=== PATIENT | female | born 1995 | race Caucasian/White ===

== ENCOUNTER 2017-05-30 19:56 | Observation (INO) ==
--- NOTE | 2017-05-30 20:16 | Emergency Department Note ---
Disposition Clinical Impression: Generalized seizure Qualifiers: Weeks of gestation: 13 weeks Qualified Code(s): Z3A.13 - 13 weeks gestation of Disposition: Admitted As Inpatient Condition: Good Referrals: NONE,PCP [Primary Care Provider] - Forms: ED Satisfaction Letter Time of Disposition: 20:53 Seizure HPI - General Chief Complaint: ED Seizure Stated Complaint: Seizure activity Time Seen by Provider: 05/30/17 19:57 Source: family Mode of arrival: private vehicle Limitations: no limitations Nursing Notes Reviewed: Yes Vital Signs Reviewed: Yes - History of Present Illness HPI Narrative: 21-year-old female who is presently 13 weeks who was seen earlier today for seizures she had stopped her seizure medications because she was we started her back on some Keppra and she was given a follow-up apparently went home and had additional seizure. Pt Subjective Complaint: seizure Onset (ago): Just LAST WAXER Description of Episode: tonic-clonic movement Witnessed: yes - by bystander Associated trauma secondary to event: No Possible Precipitating Event: other (Patient has a history of seizures but stopped her medications when she got .) Associated symptoms: Reports: denies other symptoms Treatments prior to arrival: other (Keppra) - Related Data Home Medications Medication Instructions Recorded Confirmed Intuniv 1 mg PO BID 04/01/15 04/01/15 Bamberg 300 mg PO TID 04/01/15 04/01/15 Seroquel 50 mg PO HS PRN 04/01/15 04/01/15 Topamax 25 mg PO BID 04/01/15 04/01/15 Previous Rx's Medication Instructions Recorded Nitrofurantoin (BID) [Macrobid] 100 mg PO BID #14 capsule 01/07/16 Folic Acid 2 mg PO DAILY #60 tablet 05/30/17 LevETIRAcetam [Keppra] 500 mg PO BID #60 tablet 05/30/17 Allergies Allergy/AdvReac Type Severity Reaction Status Date / Time Cephalosporins Allergy Anaphylaxis Verified 04/01/15 14:00 latex Allergy Hives Verified 05/30/17 11:40 Penicillins Allergy Hives Verified 04/01/15 14:07 All systems ED: reviewed and negative except as stated. Constitutional: Denies: fever, chills, weakness, weight change Eyes: Denies: eye pain, eye discharge, vision change ENT ED: Denies: ear pain, throat pain, dental pain, hearing loss, epistaxis, congestion, dysphagia Cardiovascular: Denies: chest pain, palpitations, dyspnea on exertion, edema, syncope Respiratory: Denies: cough, dyspnea, wheezes, hemoptysis, stridor Gastrointestinal: Denies: abdominal pain, nausea, vomiting, diarrhea, constipation, hematemesis, melena, hematochezia Genitourinary: Denies: dysuria, frequency, hematuria, discharge Musculoskeletal: Denies: back pain, neck pain, arthralgia, myalgia Integumentary: Denies: rash, abrasion, lesions Neurological: Reports: other (Seizure). Denies: headache, weakness, numbness, paresthesias, confusion, abnormal gait, vertigo Psychiatric: Denies: anxiety, depression, suicidal thoughts, homicidal thoughts , auditory hallucinations, visual hallucinations Endocrine: Denies: fatigue Hematological/Lymphatic: Denies: easy bleeding, easy bruising Allergic/Immunologic: Denies: facial swelling, urticaria Past Medical History - Past Medical History Medical history: Reports: seizures, other Surgical history: Reports: other Psychiatric history: Reports: anxiety, bipolar, schizophrenia RESOLUTE PROFESSIONAL history: Reports: no RESOLUTE PROFESSIONAL history - Social History Smoking Status: Never smoker Smokeless Tobacco Status: No Alcohol use: Reports: none Drug use: Reports: none Physical Exam - General Limitations: no limitations General appearance: in no apparent distress - Head Head exam: atraumatic, normocephalic, normal inspection - Eye Eye exam: Present: normal appearance, PERRL, EOMI - ENT ENT exam: normal exam, normal oropharynx, mucous membranes moist - Neck Neck exam: Present: normal inspection, full ROM, trachea midline - Chest Chest inspection: Present: normal inspection, symmetric chest wall rise - Respiratory Respiratory exam: Present: normal lung sounds bilaterally - Cardiovascular Cardiovascular exam: Present: regular rate, normal rhythm, normal heart sounds - Abdominal Exam Abdominal exam: Present: soft, Non-Tender. Absent: tenderness, distention, guarding, rebound, rigidity - Extremities Exam Extremities exam: Present: normal inspection, full ROM. Absent: tenderness, pedal edema - Expanded Lower Extremity Exam Neurovascular/Tendon exam: Absent: motor deficit, sensory deficit, tendon deficit Gait: observed and normal - Back Exam Back exam: Present: normal inspection, full ROM. Absent: tenderness - Neurological Exam Neurological exam: Present: alert, oriented X3, other (Patient initially is not able to talk.) - Psychiatric Psychiatric exam: Present: agitated - Skin Skin exam: Present: warm, dry, intact, normal color Course - Reevaluation(s) Reevaluation #1: 21-year-old who is about 13 weeks who was seen earlier today and for seizures was started on Keppra 1 home and had additional seizure. Patient will be given IV load of Keppra will be admitted here for further evaluation and treatment. Time: 20:53 - Consultations Consultation #1: Discussed with Dr. Joe, 500 mg of Keppra IV. Time: 20:20 Consultation #2: Discussed with Lima Calvillo, who states that from a point review there is nothing to do. Time: 20:36 Consultation #3: Discussed with Dr. Mathur, he will discuss the case with OB and neurology and give us a call back. Time: 20:37 Additional Consultation(s): 5pm discussed with discussed the case with neurology were given an additional 500 Keppra and the patient will be admitted for further evaluation. Vital Signs Temperature 99.2 F 05/30/17 19:58 Pulse Rate 98 05/30/17 19:58 Respiratory Rate 20 05/30/17 19:58 Blood Pressure 142/81 05/30/17 19:58 O2 Sat by Pulse Oximetry 98 05/30/17 19:58 Temperature 99.2 F 05/30/17 19:58 Pulse Rate 104 05/30/17 20:47 Respiratory Rate 18 05/30/17 20:47 Blood Pressure 124/74 05/30/17 20:47 O2 Sat by Pulse Oximetry 97 05/30/17 20:47 Oxygen Delivery Oxygen Delivery Room Air
[2017-05-30] MEDS ORDERED: Naloxone 0.4 MG/ML INJ IVP PRN (21:07)
[2017-05-30] MEDS ORDERED: *HR* LORazepam 2 MG/ML VIAL IVP PRN (21:22)
--- NOTE | 2017-05-30 21:22 | Internal Med History&Physical ---
<Rafael Calero - Last Filed: 05/30/17 21:16> Date of Encounter: 05/30/17 Time of Encounter: 21:16 Assessment and Plan (1) Generalized seizure Current visit: Yes Status: Acute Recently had an EMG which shows left frontal temporal epileptiform discharges that are nonspecific. There is strong suspicion for pseudoseizure-like activity secondary to psychosis long-standing history of anxiety and bipolar schizophrenia. Consult neurology-suggestion was given additional 500 mg IV Keppra. Neurology to see tomorrow Consult psych-dayshift team to call; appears to be a psychological component, usually pseudoseizure activities versus seizures Keppra 500 mg by mouth twice a day starting tomorrow Ativan 2 mg IV push every 4 hours when necessary for seizure activity Continuous telemetry Seizure precautions, padded rails BMP CBC in the morning (2) UTI (urinary tract infection) Current visit: Yes Status: Acute UA reveals large leuk esterase and nitrates. Many bacteria present. Due to will start the patient on Macrobid 100 mg by mouth every 12 hours. Urine sent for culture Qualifiers: Urinary tract infection type: acute cystitis Qualified Code(s): N30.00 - Acute cystitis without hematuria (3) Current visit: Yes Status: Acute 13 weeks gestation. Reporting no problems with thus far. New seizure like activities, consulting OBGYN to assist with management. Qualifiers: Weeks of gestation: 13 weeks Qualified Code(s): Z3A.13 - 13 weeks gestation of (4) DVT prophylaxis Current visit: Yes Status: Acute EPCD's calf pumps Internal Medicine - H&P: HPI Chief complaint: Pseudoseizures and UTI Admitted From: Home Plans for Post Hospital Care: Home History of present illness: Ms. Duff is a 21 year old female with a PMH of anxiety, bipolar schizophrenia. Presents today with seizure-like activity which began this morning. She is 13 weeks gestation was seen in the ED earlier today for seizure activity. She reports recently stopping her seizure medications due to . Was on lithium prior but is not taking lithium for the last 2-3 months she was given Keppra 500 mg while in the ED and sent home with oral Keppra. She returns this evening with pseudoseizure-like activity. Denies any fever, chills, headaches, vision changes or auras. She does admit to increasing auditory hallucinations over the last couple of months. She is unsure if or what seizure medications she takes at home. Past Med Surg Social Fam HX - Past Medical History Medical history: seizures, other Psychiatric history: anxiety, bipolar, schizophrenia - Past Surgical History Surgical History: other - Social History Smoking Status: Never smoker Smokeless Tobacco Status: No Alcohol use: none Drug use: none - Additional Family History Additional family history: Noncontributory Internal Medicine - H&P: Meds Folic Acid 2 mg PO DAILY #60 tablet 05/30/17 [Rx] LevETIRAcetam [Keppra] 500 mg PO BID #60 tablet 05/30/17 [Rx] Pnv95/Ferrous Fumarate/FA [ Vitamin Tablet] 1 each PO DAILY 05/30/17 [ History] 3 Allergy/AdvReac Type Severity Reaction Status Date / Time Cephalosporins Allergy Anaphylaxis Verified 04/01/15 14:00 latex Allergy Hives Verified 05/30/17 11:40 Penicillins Allergy Hives Verified 04/01/15 14:07 All Systems PM: A 10-system review of systems was performed and is negative for pertinent findings except as documented above in the HPI. - Constitutional Constitutional: no chills, no fever(s), no night sweats - EENT Eyes: no change in vision, no discharge, no pain, no photophobia - Cardiovascular Cardiovascular ROS IM: no chest pain, no diaphoresis, no dyspnea, no lightheadedness, no palpitations, no syncope - Respiratory Respiratory: no cough, no dyspnea, no wheezing, no excessive phlegm production - Gastrointestinal Gastrointestinal: no abdominal pain, no diarrhea, no hematemesis, no hematochezia, no melena, no nausea, no vomiting - Genitourinary Genitourinary: no change in urinary stream, no dysuria, no flank pain, no hematuria - Musculoskeletal Musculoskeletal ROS IM: no numbness, no tingling - Integumentary Integumentary IM: no rash, no unusual bruising - Neurological Neurological ROS: as per HPI, abnormal movements (seizure like activity, violent flailing of torso and upper and lower extremities) - Psychiatric Psychiatric: as per HPI, anxiety, auditory hallucinations, difficulty concentrating, no homicidal ideation, no suicidal ideation, no visual hallucinations - Constitutional Vitals: Temp Pulse Resp BP Pulse Ox 99.2 F 104 18 124/74 97 11/01/17 19:58 05/30/17 20:47 05/30/17 20:47 05/30/17 20:47 05/30/17 20:47 General appearance: Present: cooperative, mild distress, A&O X 3 - Head Head exam: Present: atraumatic, normocephalic - Eye Eye exam: Present: PERRL, conjuntiva pink, sclera anicteric Pupils: Present: PERRL - Neck Neck exam general surgery: Present: supple, trachea midline. Absent: lymphadenopathy - Respiratory Respiratory exam: Present: CTAB. Absent: accessory muscle use, rales, rhonchi, wheezes - Cardiovascular Cardiovascular exam: Present: RRR, +S1, +S2. Absent: diastolic murmur, gallop, rubs, systolic murmur - GI/Abdominal GI/Abdominal exam: Present: normal bowel sounds, soft, no peritoneal signs. Absent: distended, tenderness - Extremities Exam Extremities exam: Present: warm, radial pulses palpable and symmetrical. Absent : calf tenderness, cyanotic, pedal edema - Neurological Exam Neurological exam: Present: oriented X3, no focal deficits. Absent: pronater drift, facial droop, speech deficit Additional comments: bedside the patient appeared to have pseudoseizure-like activities with violent flailing of torso, upper and lower extremity is. However, she was not postictal after the event and was immediately able to resume my examination. - Expanded Neurological Exam Neurological exam expanded: Present: protecting the airway Patient oriented to: Present: person, place, time Speech: Present: fluid speech Coma Scale Eye Opening: Spontaneous Coma Scale Motor Response: Obeys Commands Coma Scale Verbal Response: Oriented Coma Scale Total: 15 - Psychiatric Psychiatric exam: Present: anxious. Absent: homicidal ideation, suicidal ideation - Skin Skin exam: Present: dry, intact Internal Med - H&P Results - EKG Data -: EKG Interpreted by Myself - EKG Data EKG comments: 05/30/17 21:47 Sinus rhythm with sinus arrhythmia. <Boone Mathur - Last Filed: 05/30/17 23:21> Date of Encounter: 05/30/17 Time of Encounter: 23:07 - Constitutional Vitals: Temp Pulse Resp BP Pulse Ox 99.6 F 89 14 111/76 97 05/30/17 21:55 05/30/17 21:55 05/30/17 21:55 05/30/17 21:55 05/30/17 21:55 General appearance: Present: cooperative, A&O X 3, pleasant, no acute distress - Head Head exam: Present: atraumatic - Eye Eye exam: Present: EOMI, PERRL. Absent: scleral icterus Pupils: Present: normal accommodation - ENT ENT exam: Present: mucous membranes moist, normal exam - Neck Neck exam general surgery: Present: full ROM, supple. Absent: tenderness - Respiratory Respiratory exam: Present: CTAB. Absent: rales, rhonchi, wheezes - Cardiovascular Cardiovascular exam: Present: RRR, +S1, +S2. Absent: diastolic murmur, systolic murmur - GI/Abdominal GI/Abdominal exam: Present: normal bowel sounds, soft. Absent: tenderness - Extremities Exam Extremities exam: Present: normal capillary refill, warm, radial pulses palpable and symmetrical. Absent: calf tenderness, pedal edema - Back Exam Back exam: Present: normal inspection. Absent: CVA tenderness (L), CVA tenderness (R) - Neurological Exam Neurological exam: Present: alert, oriented X3, no focal deficits, strengths equal and symetr throughout - Psychiatric Psychiatric exam: Present: anxious - Skin Skin exam: Present: dry, warm Internal Med - H&P Results - EKG Data -: EKG Interpreted by Myself - EKG Data EKG comments: 05/30/17 23:12 Sinus arrhythmia - Attending Attestation I discussed the patient [place], PMH, ROS, lab data, and exam findings with Rafael Calero CNP. I then saw and examined patient independently as well. In addition, I spoke with Dr. Joe (neurology) and Lima Calvillo (public relations officer -- OB ) prior to accepting admission from ER. Patient has known seizure disorder and has been off seizure meds for about 2 years now. She also stopped her psychiatric meds abruptly once she found out she was . She states she has been seizure free for 2 years until recently. She reportedly had a few seizures today. There is also some concern these may be pseudoseizures. Nonetheless, she is admitted for further work-up and treatment. I spoke with Dr. Joe earlier who recommended she receive 1000mg Keppra IV tonight in ER with resumption of 500 mg BID dosing starting tomorrow. She also has UTI symptoms. I spoke with Lima after she saw patient and she ordered ultrasound of uterus given that she did not appreciate heart tones at this time. We will continue Keppra, Macrobid, and IVF. OB and neurology are consulted. We will also consult psychiatry as noted by Rafael. Other than my comments above and noted exam findings, I agree with Rafael's assessment an plan.
--- NOTE | 2017-05-30 22:54 | OB/GYN Consult Note ---
Date of Encounter: 05/31/17 Time of Encounter: 22:54 Assessment and Plan (1) Current Visit: Yes Status: Acute at 13 weeks gestation. Unable to achieve tones at the bedside. Proceed to formal OB US. -OB pelvic ultrasound shows FHR 152, good movement, and gestation at approximately 14 weeks 2 days. -Will supplement with 2grams of folic acid due to recent administration of Keppra. Qualifiers: Weeks of gestation: 13 weeks Qualified Code(s): Z3A.13 - 13 weeks gestation of (2) UTI (urinary tract infection) Current Visit: Yes Status: Acute Patient with documented history of PCN and cephalosporin allergies. -Will start Macrobid BID PO. -monitor clinically. Qualifiers: Urinary tract infection type: acute cystitis Hematuria presence: without hematuria Qualified Code(s): N30.00 - Acute cystitis without hematuria (3) Generalized seizure Current Visit: Yes Status: Acute Management per primary team and/or neurology. History of Present Illness Consult date: 05/30/17 Requesting physician: Boone Mathur Reason for consult: other (Patient with 13 week gestation) Chief complaint: Seizures History of present illness: Ms. 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 She presented to the emergency department this evening actively seizing. Her seizures are now under control with Ativan and Keppra. Per patient, she recently discontinued all of her psychiatric and antiepileptic medications when she found out she was approximately 3 months ago. Patient was taking lithium, latuda, Intuniv, and an unknown seizure medication at that time. Patient sees Dr. Cooper in neurology here at [facility] as well as Dr. Holly at [facility] [employer]. Patient is resting comfortably in her bed currently. She denies any vaginal bleeding or discharge. She states her has been uncomplicated up until this point. Of note, patient was found to have a UTI in the ED. She was admitted to medicine service for management of her epileptic activity. Past Med Surg Social Fam HX - Past Medical History Attestation: Yes The following information was validated with the patient. Source: patient Medical history: seizures (S/P stroke secondary to AVM at 11), other Psychiatric history: anxiety, bipolar, schizophrenia - Past Surgical History Surgical History: other - Social History Smoking Status: Never smoker Smokeless Tobacco Status: No Alcohol use: none Drug use: none - Family History Mother Hx Family Cardiac Disorders: Yes Hx Family Neurologic Disorders: Yes (SEIZURES, CVA) Medications and Allergies Folic Acid 2 mg PO DAILY #60 tablet 05/30/17 [Rx] LevETIRAcetam [Keppra] 500 mg PO BID #60 tablet 05/30/17 [Rx] Pnv95/Ferrous Fumarate/FA [ Vitamin Tablet] 1 each PO DAILY 05/30/17 [ History] 3 Allergy/AdvReac Type Severity Reaction Status Date / Time Cephalosporins Allergy Anaphylaxis Verified 04/01/15 14:00 latex Allergy Hives Verified 05/30/17 11:40 Penicillins Allergy Hives Verified 04/01/15 14:07 Review of Systems All Systems: reviewed and no additional remarkable complaints except as stated Constitutional: no anorexia, no chills, no fever(s), no headache(s) Nose, mouth and throat: no headache(s) Cardiovascular: no chest pain, no dyspnea, no lightheadedness, no palpitations Respiratory: no cough, no dyspnea, no dyspnea on exertion Gastrointestinal: no abdominal pain, no constipation, no diarrhea Genitourinary Female: no dysuria, no flank pain, no urinary urgency, no vaginal discharge, no vaginal odor Neurological: no abnormal speech, no focal weakness Exam - Vital Signs Vital signs: Initial Vital Signs Temp Pulse Resp BP Pulse Ox 99.2 F 98 20 142/81 98 05/30/17 19:58 05/30/17 19:58 05/30/17 19:58 05/30/17 19:58 05/30/17 19:58 - Constitutional Constitutional: well developed, well nourished, no acute distress - HEENT HEENT: Mucus Membranes Moist - Lungs Respiratory exam: CTAB - Cardiovascular Cardiovascular exam: RRR, +S1, +S2 - Abdomen Abdomen: Present: bowel sounds normal, non tender - Extremities Extremities exam: normal inspection, radial pulses palpable and symmetrical - Uterus Uterus exam: Present: normal size (Fundus below umbilicus) Results All other labs normal. Consult Discharge Plan - Plan Referrals: NONE,PCP [Primary Care Provider] -
[2017-05-30] MEDS: Nitrofurantoin (BID) 100 MG CAPSULE PO SCH (23:27)
[2017-05-31 04:50] LABS: Basophils % 0.5 %; Eosinophils # 0.1 K/mcL (0.0-0.6); Eosinophils % 0.9 %; Hematocrit 36.7 % (35.3-44.9); Hemoglobin 12.6 g/dL (11.5-15.4); Immature Granulocytes % 0.4 % (0-4); Lymphocytes # 2.4 K/mcL (0.6-4.6); Lymphocytes % 30.1 %; Mean Corpuscular HGB Conc 34.3 g/dL (31.6-35.5); Mean Corpuscular Hemoglobin 29.9 pg (28.0-33.3); Mean Platelet Volume 11.1 fL (9.4-12.4); Monocytes # 0.9 K/mcL (0.0-1.3); Monocytes % 11.6 %; Neutrophils # 4.5 K/mcL (1.6-8.9); Platelet Count 204 K/mcL (140-400); Red Blood Count 4.22 M/mcL (3.82-4.97); Red Cell Distribution Width 14.1 % (11.5-14.5); Segmented Neutrophils % 56.5 %
[2017-05-31 05:34] LABS: BUN/Creatinine Ratio 10 (6-26); Blood Urea Nitrogen 6 mg/dL (7-20); Calcium 8.9 mg/dL (8.6-10.8); Carbon Dioxide 20 mEq/L (19-29); Chloride 109 mEq/L (98-109); Glucose 77 mg/dL (70-99); Osmolality,Calculated 282 (280-300); Potassium 3.5 mEq/L (3.5-4.5); Sodium 138 mEq/L (136-145); eGFR For African Americans > 60 (> 60); eGFR For Non-African Americans > 60 (> 60)
[2017-05-31] MEDS ORDERED: Nitrofurantoin (BID) 100 MG CAPSULE PO SCH (08:00)
[2017-05-31] MEDS ORDERED: Acetaminophen 325 MG TABLET PO ONE (08:33)
[2017-05-31] MEDS: Nitrofurantoin (BID) 100 MG CAPSULE PO SCH (08:50)
[2017-05-31] MEDS ORDERED: Prenatal Vit/FA 1 EACH TABLET PO SCH (09:00)
[2017-05-31] MEDS ORDERED: Folic Acid 1 MG TABLET PO SCH (09:00)
[2017-05-31] MEDS ORDERED: levETIRAcetam 250 MG TABLET PO SCH (09:00)
--- NOTE | 2017-05-31 09:05 | Neurology - Consult Note ---
Date of Encounter: 05/31/17 Time of Encounter: 08:05 Assessment and Plan (1) Generalized seizure Current Visit: Yes Status: Acute This patient who has an history of seizures for quite some time along with history of intravenous malformation status post embolization about 10 years ago recently having increasing seizures apparently he had a few seizures yesterday she has been off all seizure medications because of the she has been 13 weeks , He has been started on Keppra yesterday in the emergency room but apparently had a few seizures after that she is on IV suggested that we should continue on Keppra 500 mg by mouth twice a day along with folic acid 2 mg daily. Though she had an history of seizures but at the same time there is a concern that she may have some pseudoseizures mixed in as well due to the fact that she has not history of bipolar disorder as well as other behavioral disorders have recently been under stress particularly with the perhaps may be contributing to these spells Regardless she certainly need to be treated with seizure medication as she also has valid reason for these seizures Suggest that he should continue on the Keppra keep her on seizure precautions OB services has already been consulted and following the patient (2) History of arteriovenous malformation (AVM) Current Visit: Yes Status: Acute Patient has not history of AV malformation status post embolization and also has a gamma knife in 2007 last imaging studies in July 2015 did not show any evidence of any new problem and her embolization was a stable at this time she does not have any clinical signs and symptoms for bleeding or any other neurological abnormalities on examination that would require any repeat imaging studies. (3) Current Visit: Yes Status: Acute Qualifiers: Weeks of gestation: 13 weeks Qualified Code(s): Z3A.13 - 13 weeks gestation of (4) History of bipolar disorder Current Visit: Yes Status: Acute She has a history of bipolar and behavior disorder had been seen by [facility] in the past and was on a quite a few medication but she has been off for the past several months I would recommend that she should be evaluated by psychiatry to make sure that she is maintained on some medication especially during the so she does not have any relapses History of Present Illness HPI: Ms. Duff is a 21 year old female known to me from previous office visit for seizures and history of AVM, she also has history of anxiety, bipolar schizophrenia as well as seizures, also had history of AVM s/p embolization in 2006 and gamma knife in 2007, admitted with with seizure-like activity which began this morning. She is 13 weeks gestation was seen in the ED earlier today for seizure activity. She reports recently stopping her seizure medications due to . she Was on lithium as well as ablify prior but is not taking lithium for the last 2-3 months she was given Keppra 500 mg while in the ED and sent home with oral Keppra. She returns this evening with pseudoseizure-like activity. Denies any fever, chills, headaches, vision changes or auras. She does admit to increasing auditory hallucinations over the last couple of months. She is unsure if or what seizure medications she takes at home. Patient last seen in February at that time she was only taking Neurontin but she stopped taking it because making her drowsy so she was given a prescription for Lyrica but apparently she did not start taking it. Before Neurontin she was on Topamax but he stopped due to nausea overall she was a stable but having few seizures, off and on before she got , she was not on any anticonvulsive agents in the last 2-3 months she also stopped taking her other psychiatric medication as well Patient has an history of AVM for which she had an embolization, her last imaging studies was in August [address] she had a CT angiogram which shows evidence of embolization of AVM in the region of the posterior body and splenium of the corpus callosum. No enlarged feeding vessel or evidence of aneurysm. No acute intracranial abnormality noted at that time. Past Med Surg Social Fam HX - Past Medical History Medical history: seizures (S/P stroke secondary to AVM at 11), other Psychiatric history: anxiety, bipolar, schizophrenia - Past Surgical History Surgical History: other - Social History Smoking Status: Never smoker Smokeless Tobacco Status: No Alcohol use: none Drug use: none - Family History Mother Hx Family Cardiac Disorders: Yes Hx Family Neurologic Disorders: Yes (SEIZURES, CVA) Medications and Allergies Folic Acid 2 mg PO DAILY #60 tablet 05/30/17 [Rx] LevETIRAcetam [Keppra] 500 mg PO BID #60 tablet 05/30/17 [Rx] Pnv95/Ferrous Fumarate/FA [ Vitamin Tablet] 1 each PO DAILY 05/30/17 [ History] 3 Allergy/AdvReac Type Severity Reaction Status Date / Time Cephalosporins Allergy Anaphylaxis Verified 04/01/15 14:00 latex Allergy Hives Verified 05/30/17 11:40 Penicillins Allergy Hives Verified 04/01/15 14:07 All Systems: A 10-system review of systems was performed and is negative for pertinent findings except as documented above in the HPI. Physical Examination - Vital Signs Vital Signs: Initial Vital Signs Temp Pulse Resp BP Pulse Ox 99.2 F 98 20 142/81 98 05/30/17 19:58 05/30/17 19:58 05/30/17 19:58 05/30/17 19:58 05/30/17 19:58 - Constitutional General appearance: comfortable - Neurologic Sensorimotor examination: intact Detailed motor examination: grossly full strength in all extremities Detailed sensory examination: intact Reflex and gait examination: intact Reflexes: Biceps: 1+, Triceps: 1+, Brachioradialis: 1+, Patella: 1+, Achilles: 1 + Mental Status Examination: awake, oriented to person, oriented to place, oriented to time, follows commands appropriately, answers questions appropriately Cranial nerve examination: PERRL, EOMI, visual zelaya intact, no facial asymmetry is present, no dysarthria Cerebellar examination: no dysmetria Results - Laboratory Findings CBC and BMP: 05/31/17 03:37 05/31/17 03:37 Abnormal lab findings: Abnormal lab results BUN 6 mg/dL (7-20) L 05/31/17 03:37 [place] < 0.1 mEq/L (0.6-1.2) L 05/30/17 21:53 Consult Discharge Plan - Plan Referrals: NONE,PCP [Primary Care Provider] -
--- NOTE | 2017-05-31 13:43 | Discharge Summary ---
Date of Encounter: 05/31/17 Time of Encounter: 13:41 - Discharge Diagnosis (1) Generalized seizure Priority: Primary Status: Acute Comments: Moira Duff is a 21-year-old female with past medical history seizure disorder and AVM who presented to [facility] on 2016 after having a seizure. She was admitted for neurologic and psychiatric evaluation. She was discharged home on 05/31/2017 in stable condition with outpatient follow-up 1. Seizure disorder: per hx. Not on AEDs at home. Presented with reported tonic clonic seizure 2 months prior and on day of admission. Loaded with Keppra in the ED. Evaluated by cardiology who recommended continuing Keppra 500 mg BID. No seizure activity while inpatient. Continue Keppra with folic acid at discharge. Will need to follow-up with neurology outpatient. 2. Hx AVM: Status post embolization 10 years ago. Allergy noted Gamma knife in 2007 with most recent imaging 07/2015 without evidence of new finding and embolization stable at that time. No clinical signs or symptoms of bleeding or other logic abnormalities. No need to repeat imaging studies at this time per neurology. 3. Bipolar: Per history. Has been off medications for the past several months secondary to and insurance reasons. Patient was evaluated by Dr. Paul who did not feel patient warranted treatment at this time. Per Dr. Paul, IF the patient needed to be treated, the safest medications with are fluoxetine and Haldol. Hold on prescribing antipsychotics at this time. Will defer to outpatient psychiatrist. 4. Abnormal UA: UA with leuk esterase and nitrites. Macrobid started on admission. Urine culture negative, no growth. ATB stopped. 5. : Evaluated by OB who noted at 13 weeks gestation. OB pelvic ultrasound shows FHR 152, good movement, and gestation at approximately 14 weeks. Can follow up with OB as previously planned (2) Priority: Primary Status: Acute Qualifiers: Qualified Code(s): Z3A.13 - 13 weeks gestation of (3) History of bipolar disorder Priority: Primary Status: Acute (4) History of arteriovenous malformation (AVM) Priority: Primary Status: Acute - Discharge Medications Prescriptions: Folic Acid 2 mg PO DAILY #60 tablet LevETIRAcetam [Keppra] 500 mg PO BID #60 tablet Home Medications: Pnv95/Ferrous Fumarate/FA [ Vitamin Tablet] 1 each PO DAILY 05/30/17 [ History] Folic Acid 2 mg PO DAILY #60 tablet 05/31/17 [Rx] LevETIRAcetam [Keppra] 500 mg PO BID #60 tablet 05/31/17 [Rx] Allergies/Adverse Reactions: 3 Allergy/AdvReac Type Severity Reaction Status Date / Time Cephalosporins Allergy Anaphylaxis Verified 04/01/15 14:00 latex Allergy Hives Verified 05/30/17 11:40 Penicillins Allergy Hives Verified 04/01/15 14:07 Procedures/tests Complete & Pending: Procedures Performed prior 72 hours Category Date Time Status OB follow up [US] Stat Exams 05/30/17 22:46 Draft Date of admission: 05/30/17 21:01 Primary care physician: PCP NONE Consults: 05/30/17 21:09 Consult to Neurology [CONS] Routine Consulting Provider: [facility] Reason for Consult: pseudoseizures, h/o schizophrenia anxiety and bipolar. Recently stopped psych meds due to . Time Notified: 21:12 Call Completed: Yes Consult to [employer] [CONS] Routine Consulting Provider: [employer] [facility] Reason for Consult: pseudoseizures, h/o schizophrenia anxiety and bipolar. Recently stopped psych meds due to Time Notified: 21:12 Call Completed: Yes Consult to Psychiatry [CONS] Routine Consulting Provider: Psychiatry [place] Reason for Consult: pseudoseizures, h/o schizophrenia anxiety and bipolar. Recently stopped psych meds due to Call Completed: No Discharging clinician: Latisha Aguirre Anticipated date of discharge: 05/31/17 - Patient Status Disposition: Home, Self-Care Condition: Good Functional capacity at discharge: independent ambulation Overall status at discharge: patient is back to baseline - Discharge Instructions Instructions: Epilepsy (DC), Levetiracetam (By mouth), (DC) Follow Up With: Aj Holly MD [Partnered Physician] - 06/18/17 10:45 am Jeremy Joe MD [Partnered Physician] - 06/11/17 11:00 am Additional Instructions: Follow Up Appointment 1. Please call your primary care's office within 24 hours or next business day to schedule a follow up appointment 2. Please follow up with psychiatrist as previously planned 3. Continue taking antiseizure medications as prescribed and follow-up with neurology - Diet and Activity Activity: increase activity as tolerated Diet: advance to your usual diet Interval History: Seen and examined at bedside. Patient is new to me. Information obtained from chart review and patient report. Patient has a headache otherwise she has no complaints. No further seizure activity recurrence. She has not been taking seizure medication at home. She tells me she was seizure free for years therefore seizure medication was stopped. Hospital course: Ms. Duff is a 21 year old female - Time Spent with Patient Total time spent providing and/or coordinating discharge services: Greater than 30 minutes (44 minutes spent on discharge) - Constitutional Vitals: Temp Pulse Resp BP Pulse Ox 97.7 F 86 17 114/77 94 05/31/17 10:43 05/31/17 10:43 05/31/17 10:43 05/31/17 10:43 05/31/17 10:43 General appearance: Present: cooperative, A&O X 3, pleasant, no acute distress - Head Head exam: Present: atraumatic, normocephalic - Eye Eye exam: Present: PERRL, conjuntiva pink, sclera anicteric Pupils: Present: PERRL - Neck Neck exam general surgery: Present: supple, trachea midline. Absent: lymphadenopathy - Respiratory Respiratory exam: Present: CTAB. Absent: accessory muscle use, rales, rhonchi, wheezes - Cardiovascular Cardiovascular exam: Present: RRR, +S1, +S2. Absent: diastolic murmur, gallop, rubs, systolic murmur - GI/Abdominal GI/Abdominal exam: Present: normal bowel sounds, soft, no peritoneal signs. Absent: distended, tenderness - Extremities Exam Extremities exam: Present: warm, radial pulses palpable and symmetrical. Absent : calf tenderness, cyanotic, pedal edema - Neurological Exam Neurological exam: Present: CN II-XII intact, oriented X3, no focal deficits. Absent: pronater drift, facial droop, speech deficit - Skin Skin exam: Present: dry, intact - VTE Reasons for not Prescribing Prophylaxis: Medical contraindication
--- NOTE | 2017-05-31 14:27 | Consult Note ---
Date of Encounter: 05/31/17 Time of Encounter: 14:05 Assessment & Recommendation (1) History of bipolar disorder Current visit: Yes Status: Acute Assessment & Recommendation: Please see history of present illness for recommendation. Patient can be discharged if medically stable. Continue follow-up with mental health's History of Present Illness Patient: new to practice Requesting Physician: Latisha Aguirre CNP Reason for consult: and bipolar disorder History of present illness: Ms. Duff is a 21 year old female admitted to the hospital for evaluation of seizure activity. Patient is 14 weeks with history of seizures and psychiatric history of bipolar disorder. Psychiatric consultation was requested for medication recommendation in . Patient was seen by neurology and [employer] consultations and their reports were reviewed. Patient stopped all her medication 3 months ago when she found out she is . Patient reports history of depressive and bipolar symptoms including auditory and visual hallucinations in the past. She was treated with lithium, Latuda. Patient is currently treated with Keppra ordered by neurology to stabilize her seizure activity. From psychiatric standpoint, patient is currently psychiatrically stable without acute symptoms of depression or psychosis. My recommendation at this time: 1. Continue outpatient appointments with psychiatrist and therapist to evaluate any symptoms of depression or psychosis. It is preferred to continue without any medication. 2. If symptoms are significant, medication can be used safely in would be fluoxetine as antidepressants and haloperidol as antipsychotic. Keep in mind that Keppra is helpful as mood stabilizer. CC: Latisha Aguirre CNP Past Med Surg Social Fam HX - Past Medical History Medical history: seizures (S/P stroke secondary to AVM at 11), other - Past Psychiatric History Psychiatric history: Reports: bipolar, depression - Past Surgical History Surgical History: other - Social History Smoking Status: Never smoker Smokeless Tobacco Status: No Alcohol use: none Drug use: none - Family History Mother Hx Family Cardiac Disorders: Yes Hx Family Neurologic Disorders: Yes (SEIZURES, CVA) Medications & Allergies Pnv95/Ferrous Fumarate/FA [ Vitamin Tablet] 1 each PO DAILY 05/30/17 [ History] Folic Acid 2 mg PO DAILY #60 tablet 05/31/17 [Rx] LevETIRAcetam [Keppra] 500 mg PO BID #60 tablet 05/31/17 [Rx] 3 Allergy/AdvReac Type Severity Reaction Status Date / Time Cephalosporins Allergy Anaphylaxis Verified 04/01/15 14:00 latex Allergy Hives Verified 05/30/17 11:40 Penicillins Allergy Hives Verified 04/01/15 14:07 Mental Status Exam Patient orientation: Yes Person, Yes Time, Yes Place Level of alertness: Alert Patient appearance: Appropriate, Well Groomed Behavior: calm, cooperative Psychomotor activity: Normal Eye contact: Maintains Eye Contact Mood description: Euthymic/stable Affect description: congruent with mood, full range Speech pattern: Normal rate, Normal rhythm, Normal tone Speech volume: Normal Thought process: Linear, Goal Oriented Thought content: No Suicidal ideation, No Homicidal ideation, No Overt delusions Perceptual disturbances: No Auditory hallucinations, No Visual hallucinations Attention span: Capable of Focused Attention Memory description: Grossly Intact Patient reliability: Reliable Historian Intelligence estimate: Average Judgment: Limited Insight: Partial Results - Vital Signs Vital signs: Temp Pulse Resp BP Pulse Ox 97.7 F 86 17 114/77 94 05/31/17 10:43 05/31/17 10:43 05/31/17 10:43 05/31/17 10:43 05/31/17 10:43 - Drug Levels and Toxicology Drug Levels and Toxicology: Drug Levels and Toxicity 05/30/17 21:53 [place] < 0.1 L - Labs Labs: Laboratory Last Values WBC 8.0 K/mcL (4.3-11.1) 05/31/17 03:37 RBC 4.22 M/mcL (3.82-4.97) 05/31/17 03:37 Hgb 12.6 g/dL (11.5-15.4) 05/31/17 03:37 Hct 36.7 % (35.3-44.9) 05/31/17 03:37 MCV 87.0 fL (83.0-100.0) 05/31/17 03:37 MCH 29.9 pg (28.0-33.3) 05/31/17 03:37 MCHC 34.3 g/dL (31.6-35.5) 05/31/17 03:37 RDW 14.1 % (11.5-14.5) 05/31/17 03:37 Plt Count 204 K/mcL (140-400) 05/31/17 03:37 MPV 11.1 fL (9.4-12.4) 05/31/17 03:37 Immature Gran % 0.4 % (0-4) 05/31/17 03:37 Seg Neutrophils % 56.5 % 05/31/17 03:37 Lymphocytes % 30.1 % 05/31/17 03:37 Monocytes % 11.6 % 05/31/17 03:37 Eosinophils % 0.9 % 05/31/17 03:37 Basophils % 0.5 % 05/31/17 03:37 Neutrophils # 4.5 K/mcL (1.6-8.9) 05/31/17 03:37 Lymphocytes # 2.4 K/mcL (0.6-4.6) 05/31/17 03:37 Monocytes # 0.9 K/mcL (0.0-1.3) 05/31/17 03:37 Eosinophils # 0.1 K/mcL (0.0-0.6) 05/31/17 03:37 Basophils # 0.0 K/mcL (0.0-0.2) 05/31/17 03:37 Sodium 138 mEq/L (136-145) 05/31/17 03:37 Potassium 3.5 mEq/L (3.5-4.5) 05/31/17 03:37 Chloride 109 mEq/L (98-109) 05/31/17 03:37 Carbon Dioxide 20 mEq/L (19-29) 05/31/17 03:37 BUN 6 mg/dL (7-20) L 05/31/17 03:37 Creatinine 0.63 mg/dL (0.57-1.11) 05/31/17 03:37 Est GFR ( Amer) > 60 (> 60) 05/31/17 03:37 Est GFR (Non-Af Amer) > 60 (> 60) 05/31/17 03:37 BUN/Creatinine Ratio 10 (6-26) 05/31/17 03:37 Glucose 77 mg/dL (70-99) 05/31/17 03:37 Calculated Osmolality 282 (280-300) 05/31/17 03:37 Calcium 8.9 mg/dL (8.6-10.8) 05/31/17 03:37 [place] < 0.1 mEq/L (0.6-1.2) L 05/30/17 21:53 - Impressions Impressions Obstetrics Ultrasound 05/30/17 22:46 IMPRESSION: Single live intrauterine with gestational age of 14 weeks 0 days by current sonographic biometry. The estimated due date is 11/28/2017. D/ / 05/31/2017 07:02:20 Brent Gallego MD / sin Interpreting Provider: Brent Gallego MD Consult Discharge Plan - Plan Instructions: Epilepsy (DC) Referrals: Aj Holly MD [Partnered Physician] - 06/18/17 10:45 am Jeremy Joe MD [Partnered Physician] - 06/11/17 11:00 am
[2017-05-31 14:38] VITALS: BP 105/66
== END 2017-05-31 14:48 | disposition home or self-care (01) ==
LOC: EMEROO 19:56 → 3BNU 19:56
PROVIDERS: ADMIT Registered Nurse; ATTEND Registered Nurse

== ENCOUNTER → 2018-06-09 21:27 | Observation (INO) ==
[2018-06-09 20:00] LABS: Bilirubin,Urine Negative (Negative); Blood,Urine Negative (Negative); Clarity,Urine Cloudy (Clear); Color,Urine Yellow (Yellow); Glucose,Urine (UA) Normal (Normal); Ketones,Urine Negative (Negative); Leukocyte Esterase,Urine Small (Negative); Nitrite,Urine Negative (Negative); PH,Urine 6.5 pH Units (5.0-8.0); Protein,Urine Negative (Neg-Trace); Specific Gravity,Urine 1.018 (1.010-1.025); Urobilinogen,Urine Normal (Normal)
[2018-06-09 20:02] LABS: Bacteria,Urine Moderate per hpf (None-Few); Hyaline Casts,Urine None Seen per lpf (None-Few); Squamous Epithelial Cell,Urine Many per lpf (None-Few)
[2018-06-09 20:19] LABS: Amorphous Sediment,Urine Few (Few)
[2018-06-09 20:20] LABS: RBC,Urine 0-3 per hpf (0-3)
[2018-06-09 20:58] LABS: Candida DNA Not Detected (Not Detect); Gardnerella DNA Not Detected (Not Detect); Trichomonas DNA Not Detected (Not Detect)
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
== END | disposition home or self-care (01) ==
LOC: 1NENULAB
PROVIDERS: ADMIT Obstetrics & Gynecology; ATTEND Obstetrics & Gynecology

== ENCOUNTER → 2018-09-04 22:00 | Observation (INO) ==
[2018-09-04 21:07] LABS: Bilirubin,Urine Small (Negative); Blood,Urine Negative (Negative); Clarity,Urine Clear (Clear); Color,Urine Dark Yellow (Yellow); Glucose,Urine (UA) Normal (Normal); Ketones,Urine Trace mg/dL (Negative); Leukocyte Esterase,Urine Small (Negative); Nitrite,Urine Negative (Negative); Protein,Urine Trace mg/dL (Neg-Trace); Specific Gravity,Urine 1.024 (1.010-1.025); Urobilinogen,Urine Normal (Normal)
[2018-09-04 21:09] LABS: Hyaline Casts,Urine None Seen per lpf (None-Few); RBC,Urine 0-3 per hpf (0-3); Squamous Epithelial Cell,Urine Many per lpf (None-Few)
[2018-09-04 21:16] LABS: Amphetamine Screen,Urine Negative ng/mL (Cutoff=1000); Barbiturate Screen,Urine Negative ng/mL (Cutoff=200); Benzodiazepines Screen,Urine Negative ng/mL (Cutoff=200); Cannabinoid Screen,Urine Negative ng/mL (Cutoff = 50); Cocaine Screen,Urine Negative ng/mL (Cutoff= 300); Opiate Screen,Urine Negative ng/mL (Cutoff=300); Phencyclidine Screen,Urine Negative ng/mL (Cutoff=25)
[2018-09-04 21:18] LABS: Bacteria,Urine Few per hpf (None-Few)
--- NOTE | 2018-09-04 21:42 | OB/GYN Progress Note ---
Date of Encounter: 09/04/18 Time of Encounter: 21:20 - Assessment and Plan (1) 39 weeks gestation of Current Visit: Yes Status: Acute Pooling, Nitrazine & Fern Negative. NST reactive, FHR baseline 140bpm. SVE 2cm/80%, not a significant change since office visit. Reviewed kick counts. IOL scheduled with Dr. Holly on 09/06. Discharge home with return labor precautions. (2) Amniotic fluid leaking Current Visit: Yes Status: Acute (3) History of arteriovenous malformation (AVM) Current Visit: No Status: Acute (4) History of bipolar disorder Current Visit: No Status: Acute (5) History of pseudoseizure Current Visit: Yes Status: Acute (6) PUPP (pruritic urticarial papules and plaques of ) Current Visit: Yes Status: Acute Rx for Kenalog sent. Subjective - Subjective Principal diagnosis: leaking fluid, cramping Interval history: 22 y/o presenting at 39w3d with c/o of leaking fluid that occurred before lunch. Denies VB or regular Ctx. Reports good FM. Antepartum ROS: loss of fluid, movement normal, contractions, no vaginal bleeding Objective - Vital Signs Vital Signs: Intake and Output 09/04/18 09/04/18 09/04/18 07:59 15:59 23:59 Other: Weight 73.6 kg Patient Weight 09/04/18 23:59 Weight 73.6 kg - Exam FHR comments: NST Reactive, FHR 140 bpm Auscultation: bilateral: normal Abdomen: Present: normal appearance, soft, gravid Cervical dilation: 2 Cervix effacement: 80 station: -2 - Labs Labs: Abnormal lab results Urine Ketones Trace mg/dL (Negative) H 09/04/18 20:57 Urine Bilirubin Small (Negative) H 09/04/18 20:57 Ur Leukocyte Esterase Small (Negative) H 09/04/18 20:57 Urine Microscopic WBC 5-15 per hpf (0-3) H 09/04/18 20:57 Ur Squamous Epith Cells Many per lpf (None-Few) H 09/04/18 20:57 Ur Culture Indicated? NO. (NO) A 09/04/18 20:57
== END | disposition home or self-care (01) ==
LOC: 1NENULAB
PROVIDERS: ADMIT Registered Nurse; ATTEND Registered Nurse

== ENCOUNTER 2018-09-06 04:00 | Inpatient (IN) ==
[2018-09-06] MEDS ORDERED: Naloxone 0.4 MG/ML INJ IVP PRN (04:28)
[2018-09-06] MEDS ORDERED: Famotidine 20 MG/2 ML VIAL IVP PRN (04:28)
[2018-09-06] MEDS ORDERED: *HR* Nalbuphine 10 MG/ML AMPUL IVP PRN (04:28)
[2018-09-06] MEDS ORDERED: miSOPROStol 25 MCG TABLET VG PRN (04:28)
[2018-09-06] MEDS ORDERED: Metoclopramide 10 MG/2 ML VIAL IVP PRN (04:28)
[2018-09-06] MEDS ORDERED: Ondansetron 4 MG/2 ML VIAL IVP PRN (04:28)
[2018-09-06 05:11] LABS: Basophils % 0.4 %; Eosinophils # 0.1 K/mcL (0.0-0.6); Eosinophils % 0.9 %; Hematocrit 35.5 % (35.3-44.9); Hemoglobin 12.4 g/dL (11.5-15.4); Immature Granulocytes % 0.6 % (0-4); Lymphocytes # 3.2 K/mcL (0.6-4.6); Lymphocytes % 38.9 %; Mean Corpuscular HGB Conc 34.9 g/dL (31.6-35.5); Mean Corpuscular Hemoglobin 32.1 pg (28.0-33.3); Monocytes # 1.2 K/mcL (0.0-1.3); Monocytes % 14.4 %; Neutrophils # 3.6 K/mcL (1.6-8.9); Platelet Count 186 K/mcL (140-400); Red Blood Count 3.86 M/mcL (3.82-4.97); Red Cell Distribution Width 14.6 % (11.5-14.5); Segmented Neutrophils % 44.8 %
[2018-09-06 05:22] LABS: Amphetamine Screen,Urine Negative ng/mL (Cutoff=1000); Barbiturate Screen,Urine Negative ng/mL (Cutoff=200); Benzodiazepines Screen,Urine Negative ng/mL (Cutoff=200); Cannabinoid Screen,Urine Negative ng/mL (Cutoff = 50); Cocaine Screen,Urine Negative ng/mL (Cutoff= 300); Opiate Screen,Urine Negative ng/mL (Cutoff=300); Phencyclidine Screen,Urine Negative ng/mL (Cutoff=25)
[2018-09-06] MEDS: Ringers Solution, Lactated 1,000 ML IVC SCH ×2 (05:47→14:01)
[2018-09-06] MEDS ORDERED: Terbutaline 1 MG/ML VIAL SQ ONE (07:06)
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
--- NOTE | 2018-09-06 09:18 | OB/GYN Procedure Note ---
Delivery - Delivery Date: 09/06/18 Provider: Bradley Irwin Intrapartum events: none Delivery induction: none Delivery augmentation: rupture of membranes, pitocin Delivery monitor: external FHT, external uterine, internal FHT Anesthesia: epidural Quantitated Blood Loss: 300 - Infant (s) Infant A Delivery Date: 09/06/18 Delivery Time: 09:01 Presentation: vertex Position: OA Route of delivery: Gender: Female Viability: Viable Pounds: 8 Ounces: 6 Weight Gram: 3.805 kg at 1 minute: 8 at 5 mins: 9 Shoulder Dystocia: not encountered Specimens collected: cord blood Placenta: spontaneous Cord: 3 umbilical vessels - Repair Episiotomy: none Laceration Description: None - Complications Delivery complications: none - Disposition Mom disposition: stable in LDR disposition: stable in LDR - Comments Comments: This patient progressed to complete and pushing and had a spontaneous vaginal delivery of a female over an intact perineum. With was held perineum body rotated from [id number]-usvev and then back to the occiput anterior presentation. was delivered with minimal difficulty. cried immediately upon delivery the cord was clamped cut after 1 minute and passed to nursing in attendance. Cord blood was obtained. Placenta was delivered spon taneously and intact. There are no cervical vaginal, periurethral or perineal lacerations noted. Patient delivered a female weight is 8 lbs. 6 oz. with Apgars of 8 at 1 minute and 9 at 5 minutes. His red blood loss is 300 mL.
--- NOTE | 2018-09-06 09:35 | Anesthesia Evaluation PreOp ---
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 Subsequent embolization followed by Gamma knife in 2007 to complete treatment. 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 Currently under house arrest) Other Medical History: Other (Scoliosis, Herpes) Anesthesia History: No Prior Anesthetic Complications, Past Anesthesia (AVM embolization, eye surgery) : Yes (39+4, ) Alcohol Use: none Drug use: none Medications and Allergies Allergy/AdvReac Type Severity Reaction Status Date / Time Cephalosporins Allergy Anaphylaxis Verified 09/06/18 04:27 latex Allergy Hives Verified 09/06/18 04:27 - Meds/Allergy Pre-op Review Medications Reviewed: Yes Allergies Reviewed: Yes Beta Blockers on Current Med List: No Anesthesia Results - Labs 09/06/18 04:40 Anesthesia Exam Height: 60 Weight: 70 - HEENT Pupil (Motor): Pupils equal Mallampati: II Teeth: Normal Oral Opening: Greater than 3 - VRT MECHANIC LOC: Oriented VRT MECHANIC Motor: Normal RUE, Normal LUE, Normal RLE, Normal LLE, Normal Face VRT MECHANIC Sensory: Normal: RUE, LUE, RLE, LLE, Face - Cardiac Rhythm: Regular Murmur: Systolic JVD: No Carotid Bruit: No - Pulmonary Respiratory Effort: Symmetrical Anesthesia Assess/Plan ASA Score: 3 Level of consciousness: Cooperative Anesthetic Plan: Epidural (According to note from MFTricia, "She should be able to have a vaginal delivery without signifiantly increasing her risk for a repeat cereberal hemorrhage from the now-occluded AVM. The patient should be able to labor and be able to push in the 2nd stage of labor with or without assistance and be able to achieve vaginal delivery." This patient's history, physical, and treatment plan was discussed extensively with Dr Black and Dr Holly. Risks and benefits were reviewed with the patient) Monitoring Plan: Standard Monitors
[2018-09-06] MEDS ORDERED: Epidural Premix (fent/bupiv) 110 ML EP ONE (10:58)
--- NOTE | 2018-09-06 11:44 | Anesthesia Procedures ---
Addendum entered and electronically signed by Cristobal Arora CRNA 09/06/18 11:45: procedure end time 1140 Original Note: Date of Encounter: 09/06/18 Time of Encounter: 11:42 Procedures: Anesthesia - Epidural/Spinal Patient ID/Chart reviewed: Yes Patient examined: Yes OB Eval: : 2 OB Eval: Hx Para: 0 OB Eval: Contractions: Non-stressed pattern Supplemental Oxygen: None/Room Air Site Prep: Aseptic Technique Patient position: upright Local Anesthetic: Lidocaine 1% Amount of Local Anesthetic used: 3 Touhy Needle Gauge: 18 Touhy Needle Depth (cm): 6 Catheter Depth at Skin (cm): 12 Test Dose (1.5% Lido + Epi): Volume given (mls): 3 Test Dose Result: Negative Infusion Rate (mls/hr): [address]: Tegaderm Interspace Used: L2-L3 Loss of Resistance (EMMY): Yes Blood: No CSF: No Paresthesia: No
[2018-09-06] MEDS ORDERED: Epidural Premix (fent/bupiv) 110 ML EP SCH (11:45)
--- NOTE | 2018-09-06 13:40 | OB Labor Progress Note ---
Date of Encounter: 09/06/18 Time of Encounter: 13:38 Labor Progress Note - Subjective Subjective: patient is comfortable s/p epidural - Vital Signs Vital Signs: VSS - Cervix Cervix: 3-4cm/80% - Heart Tones Heart Tones: CAT 1 - Interventions Interventions: patient AROM'ed with mec, start pitocin, anticipate , ECHO done and normal
[2018-09-06] MEDS ORDERED: Oxytocin 20 units/ LR 1000 mL 20 UNIT/1,000 ML BAG IVC SCH (13:45)
[2018-09-06] MEDS ORDERED: Oxytocin 20 units/ LR 1000 mL 20 UNIT/1,000 ML BAG IVC ONE (13:54)
[2018-09-06] MEDS ORDERED: Acetaminophen 325 MG TABLET PO ONE (14:55)
--- NOTE | 2018-09-06 16:20 | OB Labor Progress Note ---
Date of Encounter: 09/06/18 Time of Encounter: 16:19 Labor Progress Note - Subjective Subjective: patient is doing well - Vital Signs Vital Signs: VSS - Cervix Cervix: 4cm - Heart Tones Heart Tones: CAT 1 - Interventions Interventions: pitocin on 4, keep going up on pit, anticipate
--- NOTE | 2018-09-06 20:02 | OB Labor Progress Note ---
Date of Encounter: 09/06/18 Time of Encounter: 20:00 Labor Progress Note - Subjective Subjective: patient is doing well - Vital Signs Vital Signs: VSS - Cervix Cervix: 4-5cm/80%/0 - Heart Tones Heart Tones: CAT 1 - Interventions Interventions: IUPC placed, pitocin at 10, anticipate
--- NOTE | 2018-09-06 21:11 | OB Labor Progress Note ---
Date of Encounter: 09/06/18 Time of Encounter: 21:08 Labor Progress Note - Subjective Subjective: Patient resting comfortable with epidural in place. Discussed POC to replace IUPC per Dr. Holly's request. Patient denies any questions or concerns. - Cervix Cervix: 6.5/90/-1 - Heart Tones Heart Tones: 135 bpm moderate variability decels noted due to IUPC not tracing unable to determine if early or late. - Pantops Pantops: 1.5-2 min apart per IUPC after placed - Interventions Interventions: SVE, IUPC placed without difficulty. Patient tolerated well. - Plan Physician notified: Yes Physician notified details: updated on EFM and toco Plan: Continue labor management anticipate
[2018-09-07] MEDS ORDERED: 0.9 % Sodium Chloride 1,000 ML ONE (00:56)
--- NOTE | 2018-09-07 01:01 | OB Labor Progress Note ---
Date of Encounter: 09/07/18 Time of Encounter: 01:01 Labor Progress Note - Subjective Subjective: Patient continues to do well - Vital Signs Vital Signs: VSS - Cervix Cervix: 7cm - Heart Tones Heart Tones: 10/mod rodriguez/+accels, rec rodriguez decels - Interventions Interventions: amnioinfusion to be begin, anticipate
--- NOTE | 2018-09-07 04:49 | OB Labor Progress Note ---
Date of Encounter: 09/07/18 Time of Encounter: 04:49 Labor Progress Note - Subjective Subjective: Patient is doing well - Vital Signs Vital Signs: VSS - Cervix Cervix: fully, +2 - Heart Tones Heart Tones: CAT 1 - Interventions Interventions: patient to begin pushing, anticipate
[2018-09-07] MEDS ORDERED: *HR* Propofol 200 MG/20 ML VIAL IVP ONE ×2 (06:06→06:22)
[2018-09-07] MEDS ORDERED: *HR* Oxytocin 10 UNIT/ML VIAL IM ONE ×2 (06:08→06:43)
[2018-09-07] MEDS ORDERED: *HR* Morphine Sulfate/PF 10 MG/10 ML AMPUL ONE (06:20)
[2018-09-07] MEDS ORDERED: *HR* FentaNYL (PF) 100 MCG/2 ML VIAL ONE (06:20)
[2018-09-07] MEDS ORDERED: Dexamethasone 4 MG/ML VIAL ONE (06:38)
[2018-09-07] MEDS ORDERED: Ondansetron 4 MG/2 ML VIAL ONE (06:38)
[2018-09-07] MEDS ORDERED: Ringers Solution, Lactated 1,000 ML ONE (06:40)
[2018-09-07] MEDS ORDERED: *HR* Midazolam HCl 2 MG/2 ML VIAL ONE (06:44)
--- NOTE | 2018-09-07 07:01 | Event Note ---
Date of Encounter: 09/07/18 Time of Encounter: 06:59 I was called into the room because as patient was pushing, she began to have a seizure. It lasted for a few mins then a post ictal state then another very brief one so I made the decision at that time to proceed to a stat c section. Anesthesia called and en route.
[2018-09-07] MEDS ORDERED: *HR* Promethazine 25 MG/ML VIAL IVP PRN (07:15)
[2018-09-07] MEDS ORDERED: *HR* HYDROmorphone (PF) 1 MG/ML SYRINGE IVP PRN (07:15)
[2018-09-07] MEDS ORDERED: Ketorolac 30 MG/ML VIAL IVP ONE (07:15)
[2018-09-07] MEDS ORDERED: *HR* Labetalol 20 MG/4 ML SYRINGE IVP PRN (07:15)
[2018-09-07] MEDS ORDERED: *HR* Midazolam HCl 2 MG/2 ML VIAL IVP PRN (07:15)
[2018-09-07] MEDS ORDERED: Ondansetron 4 MG/2 ML VIAL IVP ONE (07:15)
[2018-09-07] MEDS ORDERED: *HR* OxyCODONE Immed Rel 5 MG TABLET PO PRN (07:15)
--- NOTE | 2018-09-07 07:15 | OB/GYN Procedure Note ---
Section - Date of procedure: 09/06/18 Preop diagnosis: arrest of descent, other Post-op diagnosis: same Procedure: section, primary low transverse Surgeon: Aj Holly Quantitated Blood Loss: 700 Was there an legal document assistant present: Yes Head End Desizing Machine Operator: Arabella Blackman Anesthesia Type: General section complications: none Disposition: L&D Recovery Room Specimens: Placenta, Cord blood - Infant (s) A Delivery Date: 09/06/18 Delivery Time: 09:01 Presentation: vertex Position: OA Route of delivery: Gender: Female Pounds: 8 Ounces: 6 Gram Weight: 3.805 kg at 1 minute: 8 at 5 minutes: 9 Shoulder Dystocia: not encountered Specimens collected: cord blood Placenta: spontaneous Cord: 3 umbilical vessels
--- NOTE | 2018-09-07 07:37 | OB/GYN Procedure Note ---
Section - Date of procedure: 09/06/18 Preop diagnosis: arrest of descent, other (active seizure activity) Post-op diagnosis: same Procedure: section, primary low transverse Surgeon: Aj Holly Quantitated Blood Loss: 700 Was there an assistant scientist present: Yes Knitting Machine Mechanic: Arabella Blackman Anesthesiologist: Job Burk Grey Washer: Cristobal Arora Anesthesia Type: General section complications: none Disposition: L&D Recovery Room Specimens: Placenta, Cord blood - Infant (s) Infant A Delivery Date: 09/07/18 Delivery Time: 06:14 Presentation: vertex Position: unknown Gender: Male Pounds: 8 Ounces: 6 Gram Weight: 3.54 kg at 1 minute: 9 at 5 minutes: 9 Shoulder Dystocia: not encountered Specimens collected: cord blood Placenta: spontaneous Cord: 3 umbilical vessels - Narrative Narrative: The patient was brought to the operating room where she was prepped with Betadine and draped in the usual sterile manner in the supine position. She was then placed under general anesthesia. Under general anesthetic with a blue catheter inserted, a Pfannensteil incision was made. The incision was carried down to the fascia with the scalpel. The fascia was incised transversely and dissected off the rectus muscle using blunt dissection. The peritoneum was opened taking care not to injure the bladder. The lower segment was assessed and a low transverse incision was made. The uterine incision was extended bluntly. The head was delivered and the rest of the body followed. The cord was clamped and cut and the baby was handed over to the awaiting nurse. Cord gases were obtained. The placenta was then delivered spontaneously. The uterus was explored and was empty of all tissue. The uterus was exteriorized for better visualization. The uterine incision was then closed in two layers with 0-vicryl suture. The first layer was locking and the second was imbricating. The fascia was closed with 0-vicryl. The subcutaneus tissue was closed with 3-0 vicryl. The skin was reapproximated with 4-0 vicryl. At the end of the procedure, an x ray was done and was negative for retained sponges or instruments. Estimated blood loss was 700ml. The patient was awoken and taken to the recovery area in stable condition. An x ray was done at the end of the procedure and was negative.
--- NOTE | 2018-09-07 08:10 | Internal Med History&Physical ---
Date of Encounter: 09/07/18 Time of Encounter: 08:11 Internal Medicine - H&P: HPI Chief complaint: post CS with seizure. History of present illness: Ms. Duff is a 22 year old female Past Med Surg Social Fam HX - Past Medical History Medical history: migraine, seizures, other Additional medical history: epilepsy, pseudoseizures, Psychiatric history: anxiety, ADHD, bipolar, depression - Past Surgical History Surgical History: other Additional surgical history: EYE SURGERY-. GAMMA KNIFE RADIATION- GLUE, - Social History Smoking Status: Former smoker Smokeless Tobacco Status: No Alcohol use: none Drug use: none - Family History Mother Adopted: No Family Member Ethnicity: Non- Living Status: Still Living Hx Family Cardiac Disorders: No Hx Family Respiratory Disorders: No Hx Family Cancer: No Hx Family GI Disorders: No Hx Family Genitourinary Disorders: No Hx Family Endocrine Disorder: No Hx Family Musculoskeletal Disorders: No Hx Family Neuromuscular Disorders: No Hx Family Neurologic Disorders: No Hx Family HEENT Disorders: No Hx Family Autoimmune Disorders: No Hx Family Reproductive Disorders: No Hx Family Psychosocial Disorders: No Hx Family Medical Disorders: No Internal Medicine - H&P: Meds Ferrous Sulfate [Iron] 325 mg PO BID 09/06/18 [History] Vit #108/Iron/FA [ One Tablet] 1 each PO DAILY 09/06/18 [History] valACYclovir [Valtrex] 500 mg PO BID 09/06/18 [History] Allergy/AdvReac Type Severity Reaction Status Date / Time Cephalosporins Allergy Anaphylaxis Verified 09/06/18 04:27 adhesive tape AdvReac Rash Verified 09/06/18 15:32 latex AdvReac Rash Verified 09/06/18 15:32 All Systems PM: A 10-system review of systems was performed and is negative for pertinent findings except as documented above in the HPI. Internal Med - H&P Results - Labs CBC & Chem 7: 09/06/18 04:40 - Impressions ITS Impressions Echocardiogram 09/06/18 09:17 Impressions: LVEF 65%. Normal LV chamber size, wall thickness and function. Normal left ventricular diastolic function. Normal right ventricular structure and function. No evidence of pulmonary hypertension. No significant valvular dysfunction. Left Ventricular Wall Motion: Rest Echo Findings All wall segments showed normal motion. Findings: Study Quality * Technically adequate exam. ECG Findings * Normal sinus rhythm. Left Ventricle * LVEF 65%. * Normal LV chamber size, wall thickness and function. * Normal left ventricular diastolic function. Right Ventricle * Normal right ventricular structure and function. Left Atrium * Normal left atrial size. Right Atrium * Normal right atrial size. Aortic Valve * Trileaflet aortic valve with normal function. * No aortic regurgitation. * No aortic stenosis. Mitral Valve * Normal mitral valve structure and function. * No mitral stenosis. * Trace mitral regurgitation. Tricuspid Valve * Normal tricuspid valve structure and function. * Trace tricuspid regurgitation. * No evidence of pulmonary hypertension. Pulmonic Valve * Normal pulmonic valve structure and function. * Trace pulmonic regurgitation. Aorta * Normally sized aortic root. Pericardium * The pericardium appears normal. IVC * Normal IVC dimensions and inspiratory collapse. Pulmonary Artery * Normal visualized portions of the main pulmonary artery. KUB X-Ray 09/07/18 00:00 IMPRESSION: 1. No radiopaque foreign bodies within the included abdomen or pelvis to suggest retained instruments or sponges. 2. Gaseous small bowel distention with at least mild dilation of some loops, likely ileus. D/ / Reece Artis MD / Reece Artis MD Interpreting Provider: Reece Artis MD - Time Spent With Patient Total time spent is greater than 50% in coordination of care (as documented) at patient's floor/unit and/or counseling patient: - VTE Reasons for not Prescribing Prophylaxis: Treatment not Indicated - Low risk for VTE Documentation of Mechanical Device: Intermittent pneumatic compression device
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
[2018-09-07] MEDS ORDERED: Azithromycin 250 MG TABLET PO SCH ×2 (09:00)
[2018-09-07] MEDS ORDERED: Ondansetron 4 MG/2 ML VIAL IVP PRN (09:05)
[2018-09-07] MEDS ORDERED: Sennosides 8.6 MG TABLET PO PRN (09:05)
[2018-09-07] MEDS ORDERED: Simethicone 80 MG TAB.CHEW PO PRN (09:05)
[2018-09-07] MEDS ORDERED: *HR* OxyCODONE/APAP 5/325 TABLET PO PRN (09:05)
[2018-09-07] MEDS ORDERED: Metoclopramide 10 MG/2 ML VIAL IVP PRN (09:05)
[2018-09-07] MEDS ORDERED: Ringers Solution, Lactated 1,000 ML IVC SCH (09:05)
[2018-09-07] MEDS ORDERED: Oxytocin 20 units/ LR 1000 mL 20 UNIT/1,000 ML BAG IVC SCH (09:05)
[2018-09-07 09:11] LABS: BUN/Creatinine Ratio 11 (6-26); Blood Urea Nitrogen 6 mg/dL (6-20); Calcium 8.5 mg/dL (8.6-10.3); Carbon Dioxide 22 mEq/L (23-29); Chloride 107 mEq/L (98-107); Glucose 105 mg/dL (70-105); Magnesium 1.4 mg/dL (1.6-2.6); Osmolality,Calculated 278 (280-300); Phosphorous 3.3 mg/dL (2.7-4.5); Potassium 3.8 mEq/L (3.5-5.1); Sodium 135 mEq/L (136-145); eGFR For Non-African Americans > 60 (> 60)
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
[2018-09-07] MEDS: Prenatal Vit/FA 1 EACH TABLET PO SCH (11:29)
[2018-09-07] MEDS: Azithromycin 250 MG TABLET PO SCH (11:34)
[2018-09-07] MEDS: Magnesium Oxide 400 MG TABLET PO SCH ×2 (13:01→20:15)
[2018-09-07] MEDS: Ibuprofen 600 MG TABLET PO PRN (20:04)
[2018-09-08] MEDS: Ibuprofen 600 MG TABLET PO PRN ×4 (02:47→23:16)
--- NOTE | 2018-09-08 08:41 | OB/GYN Progress Note ---
Date of Encounter: 09/08/18 Time of Encounter: 08:38 - Assessment and Plan (1) Status post primary low transverse section Current Visit: Yes Status: Acute Continue routine /postop care anticipate discharge home tomorrow Subjective - Subjective Principal diagnosis: Status post primary c/s Interval history: Patient is postop day 1 primary c/s. Patient reports passing flatus and tolerating regular diet. Patient is bottle feeding and meeting all day 1 milestones. Patient denies any questions or concerns. Patient reports: appetite normal, voiding normally, pain well controlled, ambulating normally : doing well, bottle feeding Objective - Vital Signs Latest vital signs: Vital Signs Temp Pulse Pulse Resp BP Pulse Ox 09/08/18 08:36 97.7 F 83 16 111/76 98 09/08/18 08:22 80 16 09/08/18 03:07 98.0 F 64 14 111/62 96 09/08/18 00:59 97.9 F 69 14 109/61 95 09/07/18 20:02 98.6 F 87 14 100/60 97 09/07/18 17:36 16 09/07/18 17:28 98.3 F 108 14 100/53 96 09/07/18 13:00 97.6 F 66 16 100/62 97 09/07/18 12:55 16 09/07/18 11:46 98.2 F 56 16 108/57 97 09/07/18 11:41 98.2 F 56 16 108/57 97 09/07/18 10:30 98.0 F 65 16 103/53 94 09/07/18 10:00 98.0 F 65 16 103/53 94 09/07/18 09:30 16 09/07/18 09:25 98.2 F 60 14 112/64 97 Intake and Output 09/07/18 09/08/18 09/08/18 23:59 07:59 15:59 Intake Total 1240 / 1240 1120 / 1120 Output Total 1600 / 1600 500 / 500 800 / 800 Balance -360 / -360 620 / 620 -800 / -800 Intake: IV Fluids 1000 / 1000 Pitocin 20 unit In 1,000 ml @ 1000 / 1000 125 mls/hr IVC .Q8H DONTE Rx#: [id number] Oral 240 / 240 120 / 120 Other 1000 / 1000 Output: Urine 500 / 500 800 / 800 Catheter 1600 / 1600 Other: Meal Dinner Percent of Meal Consumed 100% Weight 72.348 kg Patient Weight 09/08/18 23:59 Weight 72.348 kg - Exam Lungs: bilateral: normal Chest: Normal S1, Normal S2 Extremities: Present: normal Abdomen: Present: normal appearance, soft Incision: Present: normal, dry, intact, other (steri strips and binder) Uterus: Present: normal, firm Fundal Height: 2 (U/2) - Labs Labs: Laboratory Results - last 24 hr 09/07/18 09/07/18 07:30 08:22 Sodium 135 L Potassium 3.8 Chloride 107 Carbon Dioxide 22 L BUN 6 Creatinine 0.54 L Est GFR ( Amer) > 60 Est GFR (Non-Af Amer) > 60 BUN/Creatinine Ratio 11 Glucose 105 Calculated Osmolality 278 L Calcium 8.5 L Phosphorus 3.3 Magnesium 1.4 L Prolactin 148.45 H
[2018-09-08] MEDS: Azithromycin 250 MG TABLET PO SCH (09:40)
[2018-09-08] MEDS: Prenatal Vit/FA 1 EACH TABLET PO SCH (09:41)
[2018-09-08 09:55] LABS: Basophils % 0.2 %; Eosinophils % 0.4 %; Hematocrit 28.7 % (35.3-44.9); Immature Granulocytes % 0.4 % (0-4); Lymphocytes # 1.5 K/mcL (0.6-4.6); Lymphocytes % 13.3 %; Mean Corpuscular HGB Conc 33.8 g/dL (31.6-35.5); Mean Corpuscular Volume 94.7 fL (83.0-100.0); Mean Platelet Volume 10.9 fL (9.4-12.4); Monocytes # 1.3 K/mcL (0.0-1.3); Monocytes % 11.7 %; Neutrophils # 8.4 K/mcL (1.6-8.9); Platelet Count 145 K/mcL (140-400); Red Blood Count 3.03 M/mcL (3.82-4.97); Red Cell Distribution Width 14.7 % (11.5-14.5)
[2018-09-08 10:09] LABS: Hemoglobin 9.7 g/dL (11.5-15.4)
--- NOTE | 2018-09-08 10:47 | Internal Med Progress Note ---
Hospitalist Progress Note - Encounter Date of Encounter: 09/08/18 Time of Encounter: 10:44 - Subjective Interval History: No acute events. No further seizure like activities. Yesterday's event are thought to be pseudoseizures. Feels well. - Exam Vitals: Temp Pulse Resp BP Pulse Ox 97.7 F 83 16 111/76 98 09/08/18 08:36 09/08/18 08:36 09/08/18 08:36 09/08/18 08:36 09/08/18 08:36 Exam: GEN: NAD CVS: RRR. S1, S2, No m/r/g RESP: CTAB ABD: Soft, NT, ND, +BS EXT: No edema. 2+ DP. 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 Hard to say if patient had real seizure activity. For now she is doing well. Advised to follow up with Dr. Joe within a week after d/c. She was planned an MRI brain soon by him. She voiced understanding. Will sign off. call with any questions. (2) History of bipolar disorder Current Visit: No Status: Acute Assessment and Plan: psych is seeing here (3) Current Visit: No Status: Acute Assessment and Plan: management per OB (4) History of arteriovenous malformation (AVM) Current Visit: No Status: Acute Assessment and Plan: f/u with Dr. Joe - Time Spent with Patient Total time spent is greater than 50% in coordination of care (as documented) at patient's floor/unit and/or counseling patient: Internal Medicine: Result - Labs CBC & Chem 7: 09/08/18 09:13 09/07/18 08:22 Labs: Short CBC 09/08/18 Range/Units 09:13 WBC 11.3 H (4.3-11.1) K/mcL Hgb 9.7 L D (11.5-15.4) g/dL Hct 28.7 L (35.3-44.9) % Plt Count 145 (140-400) K/mcL Neutrophils # 8.4 (1.6-8.9) K/mcL - VTE Reasons for not Prescribing Prophylaxis: Treatment not Indicated - Low risk for VTE Documentation of Mechanical Device: Intermittent pneumatic compression device Consult Discharge Plan - Plan Additional Instructions: LABOR AND DELIVERY DISCHARGE INSTRUCTIONS Signs and Symptoms to be Reported to your Doctor Immediately: * Sudden gush, continuous or intermittent lead of fluid from vagina (note the time of gush and color of fluid) * Onset of bright red vaginal bleeding with or without pain (if you had a vaginal exam during this visit you may notice some dark red spotting. This is normal.) * Lower abdominal cramping or backache that is premenstrual-like feeling. * More than 6 contractions in one hour. * Burning during urination, having to urinate more frequently or pain in your mid-back. * A change in the baby's activity. This could be an increase or decrease in activity. * Severe headache which does not go away with tylenol. * Sudden swelling in the face, hands, arms and/or legs. * Upper abdominal pain - sometimes associated with heartburn or nausea and is not relieved by Maalox, Mylanta or Tums. * Dizziness or blurred vision or visual disturbances (seeing stars/lights). * Kick Counts One hour after a meal, lay down on one side in a quiet place. Count the number of enrike the baby moves during an hour. If less than 6 movements, notify your physician. Diet: *Force fluids - 8-10 tall glasses of fluid per day. May include popsicles and jello. *Limit caffeine - this includes chocolate, coffee, tea, any soft drink containing such as all syeda, [place] Yellow and Mountain Dew Referrals: NONE,PCP [Primary Care Provider] - _ (3) Qualifiers: Weeks of gestation: less than 8 weeks Qualified Code(s): Z3A.01 - Less than 8 weeks gestation of
--- NOTE | 2018-09-08 11:39 | Anesthesia Evaluation Post Op ---
Date of Encounter: 09/08/18 Time of Encounter: 11:38 - Vital Signs Vital Signs: Vital Signs/O2 Sat, Most Current Temp Pulse Resp BP Pulse Ox 97.7 F 83 16 111/76 98 09/08/18 08:36 09/08/18 08:36 09/08/18 08:36 09/08/18 08:36 09/08/18 08:36 - Lungs Lungs: Clear Ascult./Percussion - Airway Airway: Non-obstructed - Cardiovascular Regular Rate - Mental Status Mental Status: Alert & Oriented, Answers Appropriately - Pain Pain Scale used: Mae (Faces) (resting comfortably) - Nausea Vomiting Nausea Vomiting: Not Present - Hydration Hydration: Tolerates oral liquids
[2018-09-08] MEDS: Magnesium Oxide 400 MG TABLET PO SCH (20:20)
[2018-09-09] MEDS: Ibuprofen 600 MG TABLET PO PRN ×2 (05:13→10:56)
[2018-09-09 07:48] VITALS: BP 108/68
[2018-09-09] MEDS: Prenatal Vit/FA 1 EACH TABLET PO SCH (09:39)
[2018-09-09] MEDS: Azithromycin 250 MG TABLET PO SCH (09:39)
[2018-09-09] MEDS: Magnesium Oxide 400 MG TABLET PO SCH (09:40)
--- NOTE | 2018-09-09 10:25 | Discharge Summary ---
Date of Encounter: 09/09/18 Time of Encounter: 10:22 - Discharge Diagnosis (1) Status post primary low transverse section Priority: Primary Status: Acute Comments: S/P primary delivery day 2 Pain well controlled Lochia light and without clots VSS Tolerating regular diet; passing flatus Voiding without difficulty Bottle feeding Discharge to guest today Patient declines percocet due to history of addiction; Rx voided and placed in shred bin POC per consult with Dr Catalan (2) Seizure-like activity Priority: Secondary Status: Acute Comments: No seizure like activity since pushing phase during delivery Will follow up with Dr Joe (3) History of arteriovenous malformation (AVM) Priority: Secondary Status: Acute Comments: Follow up with Dr Joe (4) History of bipolar disorder Priority: Secondary Status: Acute Comments: Started on Zoloft per psych. Patient to follow up outpatient with Psych Patient to see KAYLEY Vela in one week. - Discharge Medications Prescriptions: Ibuprofen [Motrin] 600 mg PO Q6HR PRN #30 tablet PRN Reason: Cramping Azithromycin [Zithromax] 500 mg PO DAILY 4 Days #4 tablet Docusate [Colace] 100 mg PO BID #30 capsule Ferrous Sulfate 325 mg PO BIDWM #180 tablet Magnesium Oxide [Mag-Ox] 400 mg PO BID #20 tablet Sertraline [Zoloft] 25 mg PO DAILY #90 tablet Home Medications: Vit #108/Iron/FA [ One Tablet] 1 each PO DAILY 09/06/18 [History] Azithromycin [Zithromax] 500 mg PO DAILY 4 Days #4 tablet 09/09/18 [Rx] Docusate [Colace] 100 mg PO BID #30 capsule 09/09/18 [Rx] Ferrous Sulfate 325 mg PO BIDWM #180 tablet 09/09/18 [Rx] Ibuprofen [Motrin] 600 mg PO Q6HR PRN #30 tablet 09/09/18 [Rx] Magnesium Oxide [Mag-Ox] 400 mg PO BID #20 tablet 09/09/18 [Rx] Sertraline [Zoloft] 25 mg PO DAILY #90 tablet 09/09/18 [Rx] Simethicone [Gas-X] 80 mg PO TID PRN tab.chew 09/09/18 [Rx] Allergies/Adverse Reactions: Allergy/AdvReac Type Severity Reaction Status Date / Time Cephalosporins Allergy Anaphylaxis Verified 09/06/18 04:27 adhesive tape AdvReac Rash Verified 09/06/18 15:32 latex AdvReac Rash Verified 09/06/18 15:32 Data Procedures and tests throughout hospitalization: Laboratory Tests 09/06/18 09/06/18 09/06/18 04:40 04:40 04:40 WBC 8.1 RBC 3.86 Hgb 12.4 Hct 35.5 MCV 92.0 MCH 32.1 MCHC 34.9 RDW 14.6 H Plt Count 186 MPV 11.0 Immature Gran % 0.6 Seg Neutrophils % 44.8 Lymphocytes % 38.9 Monocytes % 14.4 Eosinophils % 0.9 Basophils % 0.4 Neutrophils # 3.6 Lymphocytes # 3.2 Monocytes # 1.2 Eosinophils # 0.1 Basophils # 0.0 Sodium Potassium Chloride Carbon Dioxide BUN Creatinine Est GFR ( Amer) Est GFR (Non-Af Amer) BUN/Creatinine Ratio Glucose Calculated Osmolality Calcium Phosphorus Magnesium Prolactin Urine Opiates Screen Negative Ur Barbiturates Screen Negative Ur Phencyclidine Scrn Negative Ur Amphetamines Screen Negative U Benzodiazepines Scrn Negative Urine Cocaine Screen Negative U Marijuana (THC) Screen Negative Ur Drug Screen Interp See Below Hep Bs Antigen Nonreactive 09/07/18 09/07/18 09/08/18 07:30 08:22 09:13 WBC 11.3 H RBC 3.03 L Hgb 9.7 L D Hct 28.7 L MCV 94.7 MCH 32.0 MCHC 33.8 RDW 14.7 H Plt Count 145 MPV 10.9 Immature Gran % 0.4 Seg Neutrophils % 74.0 Lymphocytes % 13.3 Monocytes % 11.7 Eosinophils % 0.4 Basophils % 0.2 Neutrophils # 8.4 Lymphocytes # 1.5 Monocytes # 1.3 Eosinophils # 0.0 Basophils # 0.0 Sodium 135 L Potassium 3.8 Chloride 107 Carbon Dioxide 22 L BUN 6 Creatinine 0.54 L Est GFR ( Amer) > 60 Est GFR (Non-Af Amer) > 60 BUN/Creatinine Ratio 11 Glucose 105 Calculated Osmolality 278 L Calcium 8.5 L Phosphorus 3.3 Magnesium 1.4 L Prolactin 148.45 H Urine Opiates Screen Ur Barbiturates Screen Ur Phencyclidine Scrn Ur Amphetamines Screen U Benzodiazepines Scrn Urine Cocaine Screen U Marijuana (THC) Screen Ur Drug Screen Interp Hep Bs Antigen - Impressions ITS Impressions Echocardiogram 09/06/18 09:17 Impressions: LVEF 65%. Normal LV chamber size, wall thickness and function. Normal left ventricular diastolic function. Normal right ventricular structure and function. No evidence of pulmonary hypertension. No significant valvular dysfunction. Left Ventricular Wall Motion: Rest Echo Findings All wall segments showed normal motion. Findings: Study Quality * Technically adequate exam. ECG Findings * Normal sinus rhythm. Left Ventricle * LVEF 65%. * Normal LV chamber size, wall thickness and function. * Normal left ventricular diastolic function. Right Ventricle * Normal right ventricular structure and function. Left Atrium * Normal left atrial size. Right Atrium * Normal right atrial size. Aortic Valve * Trileaflet aortic valve with normal function. * No aortic regurgitation. * No aortic stenosis. Mitral Valve * Normal mitral valve structure and function. * No mitral stenosis. * Trace mitral regurgitation. Tricuspid Valve * Normal tricuspid valve structure and function. * Trace tricuspid regurgitation. * No evidence of pulmonary hypertension. Pulmonic Valve * Normal pulmonic valve structure and function. * Trace pulmonic regurgitation. Aorta * Normally sized aortic root. Pericardium * The pericardium appears normal. IVC * Normal IVC dimensions and inspiratory collapse. Pulmonary Artery * Normal visualized portions of the main pulmonary artery. KUB X-Ray 09/07/18 00:00 IMPRESSION: 1. No radiopaque foreign bodies within the included abdomen or pelvis to suggest retained instruments or sponges. 2. Gaseous small bowel distention with at least mild dilation of some loops, likely ileus. D/ / Reece Artis MD / Reece Artis MD Interpreting Provider: Reece Artis MD Date of admission: 09/06/18 04:08 Primary care physician: PCP NONE Consults: 09/07/18 07:18 Consult to Hospitalist [CONS] Stat Consulting Provider: Hospitalist [place] Reason for Consult: Seizure activity s/p delivery via , h/o pseudoseizure disorder, anxiety and depression Call Completed: Yes 09/07/18 08:02 Consult to Psychiatry [CONS] Stat Consulting Provider: Psychiatry [place] Reason consult: Agitation Other reason and/or additional details: she has a history of depression, anxiety and seizure disorder Call Completed: Yes Discharging clinician: Clementina Amaya Anticipated date of discharge: 09/09/18 - Patient Status Disposition: Home, Self-Care Condition: Good Functional capacity at discharge: independent ambulation Overall status at discharge: patient is progressing back to baseline - Discharge Instructions Follow Up With: Jeremy Joe MD [Partnered Physician] - Aj Holly MD [Partnered Physician] - Mirian Bonilla [Program Proposals Coordinator] - Additional Instructions: LABOR AND DELIVERY DISCHARGE INSTRUCTIONS Signs and Symptoms to be Reported to your Doctor Immediately: * Sudden gush, continuous or intermittent lead of fluid from vagina (note the time of gush and color of fluid) * Onset of bright red vaginal bleeding with or without pain (if you had a vaginal exam during this visit you may notice some dark red spotting. This is normal.) * Lower abdominal cramping or backache that is premenstrual-like feeling. * More than 6 contractions in one hour. * Burning during urination, having to urinate more frequently or pain in your mid-back. * A change in the baby's activity. This could be an increase or decrease in activity. * Severe headache which does not go away with tylenol. * Sudden swelling in the face, hands, arms and/or legs. * Upper abdominal pain - sometimes associated with heartburn or nausea and is not relieved by Maalox, Mylanta or Tums. * Dizziness or blurred vision or visual disturbances (seeing stars/lights). * Kick Counts One hour after a meal, lay down on one side in a quiet place. Count the number of enrike the baby moves during an hour. If less than 6 movements, notify your physician. Diet: *Force fluids - 8-10 tall glasses of fluid per day. May include popsicles and jello. *Limit caffeine - this includes chocolate, coffee, tea, any soft drink containing such as all syeda, [place] Yellow and Mountain Dew - Diet and Activity Activity: increase activity as tolerated Diet: regular diet Hospital Course Reason for admission: induction of labor, IUP at term Delivery: section Episiotomy: none Laceration: none Other procedures: none complications: none Discharge diagnosis: IUP at term delivered [place] baby: male Time Attestation: Total time spent providing and/or coordinating discharge services: Time Spent: Less than 30 minutes - VTE Reasons for not Prescribing Prophylaxis: Treatment not Indicated - Low risk for VTE Documentation of Mechanical Device: Intermittent pneumatic compression device Exam - Constitutional Vitals: Temp Pulse Resp BP Pulse Ox 98.1 F 91 14 108/68 95 09/09/18 07:48 09/09/18 07:48 09/09/18 07:48 09/09/18 07:48 09/09/18 07:48 General appearance IM: cooperative, A&O X 3, pleasant - Respiratory Respiratory exam: Present: CTAB - Cardiovascular Cardiovascular exam IM: Present: RRR, +S1, +S2 - GI/Abdominal GI/Abdominal exam IM: normal bowel sounds, soft Incision: normal, dry, intact - Rectal Rectal exam: deferred - Uterine Tone: Firm Uterus Position: At Umbilicus, Midline - Extremities Exam Extremities exam IM: Present: normal capillary refill, normal inspection, radial pulses palpable and symmetrical - Neurological Exam Neurological exam: alert, oriented X3
== END 2018-09-09 13:00 | disposition home or self-care (01) | DRG 540 ==
LOC: 1NENULAB 04:08 → 1NENUOBS 09-07 09:06
PROVIDERS: ADMIT Registered Nurse; ATTEND Registered Nurse

== ENCOUNTER 2019-01-06 23:22 | Inpatient (IN) ==
[2019-01-07 00:16] LABS: Bilirubin,Urine Negative (Negative); Blood,Urine Negative (Negative); Clarity,Urine Clear (Clear); Color,Urine Yellow (Yellow); Glucose,Urine (UA) Normal (Normal); Ketones,Urine Trace mg/dL (Negative); Leukocyte Esterase,Urine Small (Negative); Nitrite,Urine Negative (Negative); PH,Urine 7.5 pH Units (5.0-8.0); Protein,Urine Trace mg/dL (Neg-Trace); Urobilinogen,Urine Normal (Normal)
[2019-01-07 00:20] LABS: Bacteria,Urine Moderate per hpf (None-Few); Hyaline Casts,Urine None Seen per lpf (None-Few); Squamous Epithelial Cell,Urine Many per lpf (None-Few)
[2019-01-07 00:32] LABS: Alanine Aminotransferase 8 Units/L (7-52); Albumin 4.2 g/dL (3.5-5.7); Albumin/Globulin Ratio 1.5 (1.1-2.2); Alkaline Phosphatase 92 Units/L (34-104); Aspartate Amino Transferase 11 Units/L (13-39); BUN/Creatinine Ratio 11 (6-26); Bilirubin,Direct 0.2 mg/dL (0.0-0.2); Bilirubin,Indirect 0.5 mg/dL (0.0-1.2); Bilirubin,Total 0.7 mg/dL (0.3-1.0); Blood Urea Nitrogen 7 mg/dL (6-20); Calcium 9.4 mg/dL (8.6-10.3); Carbon Dioxide 24 mEq/L (23-29); Chloride 105 mEq/L (98-107); Globulin 2.8 g/dL (2.4-3.5); Glucose 97 mg/dL (70-105); Osmolality,Calculated 282 (280-300); Potassium 3.7 mEq/L (3.5-5.1); Sodium 137 mEq/L (136-145); eGFR For African Americans > 60 (> 60); eGFR For Non-African Americans > 60 (> 60)
[2019-01-07 00:44] LABS: Basophils % 0.3 %; Eosinophils % 0.2 %; Hematocrit 42.2 % (35.3-44.9); Hemoglobin 13.7 g/dL (11.5-15.4); Immature Granulocytes % 0.2 % (0-4); Lymphocytes # 2.9 K/mcL (0.6-4.6); Lymphocytes % 22.7 %; Mean Corpuscular HGB Conc 32.5 g/dL (31.6-35.5); Mean Corpuscular Hemoglobin 27.6 pg (28.0-33.3); Mean Corpuscular Volume 85.1 fL (83.0-100.0); Monocytes # 1.2 K/mcL (0.0-1.3); Monocytes % 9.6 %; Neutrophils # 8.5 K/mcL (1.6-8.9); Platelet Count 313 K/mcL (140-400); Red Blood Count 4.96 M/mcL (3.82-4.97); Red Cell Distribution Width 13.1 % (11.5-14.5); White Blood Count 12.7 K/mcL (4.3-11.1)
[2019-01-07] MEDS ORDERED: *HR* Morphine 2 MG/ML SYRINGE IVP ONE (00:44)
[2019-01-07] MEDS ORDERED: Ondansetron 4 MG/2 ML VIAL IVP ONE (00:44)
[2019-01-07] MEDS ORDERED: Isovue-370 500 ML BOTTLE IVP ONE (00:45)
--- NOTE | 2019-01-07 02:34 | Emergency Department Note ---
Disposition Clinical Impression: Cholelithiasis and cholecystitis without obstruction Qualifiers: Cholelithiasis location: gallbladder Cholecystitis acuity: acute Qualified Code(s): K80.00 - Calculus of gallbladder with acute cholecystitis without obstruction Hematemesis Qualifiers: Nausea presence: with nausea Qualified Code(s): K92.0 - Hematemesis Disposition: Admitted As Inpatient Condition: Fair Referrals: Regi Will MD [Primary Care Provider] - Time of Disposition: 02:47 Abdominal Pain HPI - General Chief Complaint: ED Abdominal Pain Stated Complaint: Abdominal Pain Time Seen by Provider: 01/06/19 23:49 Source: patient Nursing Notes Reviewed: Yes Vital Signs Reviewed: Yes - History of Present Illness HPI Narrative: 23-year-old complaining of right-sided abdominal pain for the last 2 days. It is increased in intensity rated a 6-7 out of 10. She has been nauseated with vomiting. He also has several episodes of hematemesis. 1. she had she coughed when she was vomiting and spit blood. However she is not having episodes of vomiting since she has been here in the department. She did have a approximate 4 months ago. No other surgeries no headache or vision changes. Frontal complaints Pt Subjective Complaint: abdominal pain Onset (ago): day(s) (2) Consistency: constant Pain Scale: 6 - Related Data Home Medications Medication Instructions Recorded Confirmed Vit #108/Iron/FA 1 each PO DAILY 09/06/18 09/06/18 [ One Tablet] Previous Rx's Medication Instructions Recorded Docusate [Colace] 100 mg PO BID #30 capsule 09/09/18 Ferrous Sulfate 325 mg PO BIDWM #180 tablet 09/09/18 Ibuprofen [Motrin] 600 mg PO Q6HR PRN #30 tablet 09/09/18 Magnesium Oxide [Mag-Ox] 400 mg PO BID #20 tablet 09/09/18 Sertraline [Zoloft] 25 mg PO DAILY #90 tablet 09/09/18 Simethicone [Gas-X] 80 mg PO TID PRN tab.chew 09/09/18 Allergies Allergy/AdvReac Type Severity Reaction Status Date / Time Cephalosporins Allergy Anaphylaxis Verified 09/06/18 04:27 adhesive tape AdvReac Rash Verified 09/06/18 15:32 latex AdvReac Rash Verified 09/06/18 15:32 All systems ED: reviewed and negative except as stated. Constitutional: Denies: fever, chills, weakness, weight change Eyes: Denies: eye pain, eye discharge, vision change ENT ED: Denies: ear pain, throat pain, dental pain, hearing loss, epistaxis, congestion, dysphagia Cardiovascular: Denies: chest pain, palpitations, dyspnea on exertion, edema, syncope Respiratory: Denies: cough, dyspnea, wheezes, hemoptysis, stridor Gastrointestinal: Reports: nausea, vomiting. Denies: abdominal pain, diarrhea, constipation, hematemesis, melena, hematochezia Genitourinary: Denies: dysuria, frequency, hematuria, discharge Musculoskeletal: Denies: back pain, neck pain, arthralgia, myalgia Integumentary: Denies: rash, abrasion, lesions Neurological: Denies: headache, weakness, numbness, paresthesias, confusion, abnormal gait, vertigo Endocrine: Denies: fatigue Hematological/Lymphatic: Denies: easy bleeding, easy bruising Allergic/Immunologic: Denies: facial swelling, urticaria Abdominal Pain PMH - Past Medical History Medical history: Reports: seizures, other Female Surgical History: Reports: other () 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 Psychiatric history: Reports: anxiety, depression, previous psychiatric hospitalization - Social History Smoking status: Former smoker Alcohol use: Reports: none Drug use: Reports: none, other Physical Exam - General Limitations: no limitations General appearance: alert, in no apparent distress - Head Head exam: atraumatic, normocephalic, normal inspection - Eye Eye exam: Present: normal appearance, PERRL, EOMI - ENT ENT exam: normal exam, normal oropharynx, mucous membranes moist - Neck Neck exam: Present: normal inspection, full ROM, trachea midline - Chest Chest inspection: Present: normal inspection, symmetric chest wall rise - Respiratory Respiratory exam: Present: normal lung sounds bilaterally - Cardiovascular Cardiovascular exam: Present: regular rate, normal rhythm, normal heart sounds - Abdominal Exam Abdominal exam: Present: soft, tenderness, guarding, Nickerson's sign, other (Tender basically on the whole right side but also tender right upper quadrant as well). Absent: distention Abdominal tenderness: Present: RUQ, RLQ - Extremities Exam Extremities exam: Present: normal inspection, full ROM. Absent: tenderness, pedal edema - Back Exam Back exam: Present: normal inspection, full ROM. Absent: tenderness - Neurological Exam Neurological exam: Present: alert, oriented X3, CN II-XII intact. Absent: motor sensory deficit - Psychiatric Psychiatric exam: Present: normal affect, normal mood - Skin Skin exam: Present: warm, dry, intact, normal color Course Course Narrative: Patient was placed in examination room and history and physical was obtained. Patient was given morphine and Zofran for pain. White cell count was mildly elevated. Pain mostly on the right side of her abdomen specifically there is right upper quadrant but also the whole right side as well. A CT was obtained with IV contrast. Acute cholelithiasis with cholecystitis. Patient is afebrile. Her hemoglobin is normal. However did advise her that this will be rechecked as it may take some time to normalize since she did actually vomited blood several times. 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 I did advise the patient there were no inpatient beds at this point most likely she will stay in the emergency room overnight - Reevaluation(s) Reevaluation #1: Patient stable and resting comfortable. She is delivered a baby proximal before months prior however she is not breast-feeding she has bottlefeeding at this time. She is pain-free Time: 02:43 Vital Signs Temperature 99.7 F H 01/06/19 23:25 Pulse Rate 60 01/06/19 23:25 Respiratory Rate 16 01/06/19 23:25 Blood Pressure 142/100 01/06/19 23:25 O2 Sat by Pulse Oximetry 99 01/06/19 23:25 Temperature 99.7 F H 01/06/19 23:25 Pulse Rate 49 01/07/19 01:51 Respiratory Rate 12 01/07/19 01:51 Blood Pressure 107/78 01/07/19 01:51 O2 Sat by Pulse Oximetry 100 01/07/19 01:51 Oxygen Delivery Oxygen Delivery Room Air Abdominal Pain - Medical Records Medical records reviewed: Yes I reviewed the patient's medical records. - Lab Data Lab results reviewed: Yes I reviewed the patient's lab results. Result diagrams: 01/07/19 00:03 01/07/19 00:03 Lab Results 01/06/19 01/06/19 01/07/19 Range/Units 23:43 23:43 00:03 WBC 12.7 H (4.3-11.1) K/mcL RBC 4.96 (3.82-4.97) M/mcL Hgb 13.7 (11.5-15.4) g/dL Hct 42.2 (35.3-44.9) % MCV 85.1 (83.0-100.0) fL MCH 27.6 L (28.0-33.3) pg MCHC 32.5 (31.6-35.5) g/dL RDW 13.1 (11.5-14.5) % Plt Count 313 (140-400) K/mcL MPV 11.0 (9.4-12.4) fL Immature Gran % 0.2 (0-4) % Seg Neutrophils % 67.0 % Lymphocytes % 22.7 % Monocytes % 9.6 % Eosinophils % 0.2 % Basophils % 0.3 % Neutrophils # 8.5 (1.6-8.9) K/mcL Lymphocytes # 2.9 (0.6-4.6) K/mcL Monocytes # 1.2 (0.0-1.3) K/mcL Eosinophils # 0.0 (0.0-0.6) K/mcL Basophils # 0.0 (0.0-0.2) K/mcL Sodium (136-145) mEq/L Potassium (3.5-5.1) mEq/L Chloride (98-107) mEq/L Carbon Dioxide (23-29) mEq/L BUN (6-20) mg/dL Creatinine (0.60-1.20) mg/dL Est GFR ( Amer) (> 60) Est GFR (Non-Af Amer) (> 60) BUN/Creatinine Ratio (6-26) Glucose (70-105) mg/dL Calculated Osmolality (280-300) Calcium (8.6-10.3) mg/dL Total Bilirubin (0.3-1.0) mg/dL Direct Bilirubin (0.0-0.2) mg/dL Indirect Bilirubin (0.0-1.2) mg/dL AST (13-39) Units/L ALT (7-52) Units/L Alkaline Phosphatase (34-104) Units/L Serum Total Protein (6.4-8.9) g/dL Albumin (3.5-5.7) g/dL Globulin (2.4-3.5) g/dL Albumin/Globulin Ratio (1.1-2.2) Urine Color Yellow (Yellow) Urine Clarity Clear (Clear) Urine pH 7.5 (5.0-8.0) pH Units Ur Specific [place] 1.020 (1.010-1.025) Urine Protein Trace (Neg-Trace) mg/dL Urine Glucose (UA) Normal (Normal) mg/dL Urine Ketones Trace H (Negative) mg/dL Urine Blood Negative (Negative) Urine Nitrite Negative (Negative) Urine Bilirubin Negative (Negative) Urine Urobilinogen Normal (Normal) mg/dL Ur Leukocyte Esterase Small H (Negative) Urine Microscopic RBC 3-5 H (0-3) per hpf Urine Microscopic WBC 5-15 H (0-3) per hpf Ur Squamous Epith Cells Many H (None-Few) per lpf Urine Bacteria Moderate H (None-Few) per hpf Hyaline Casts None Seen (None-Few) per lpf Ur Culture Indicated? YES A (NO) Urine Test Negative (Negative) 01/07/19 Range/Units 00:03 WBC (4.3-11.1) K/mcL RBC (3.82-4.97) M/mcL Hgb (11.5-15.4) g/dL Hct (35.3-44.9) % MCV (83.0-100.0) fL MCH (28.0-33.3) pg MCHC (31.6-35.5) g/dL RDW (11.5-14.5) % Plt Count (140-400) K/mcL MPV (9.4-12.4) fL Immature Gran % (0-4) % Seg Neutrophils % % Lymphocytes % % Monocytes % % Eosinophils % % Basophils % % Neutrophils # (1.6-8.9) K/mcL Lymphocytes # (0.6-4.6) K/mcL Monocytes # (0.0-1.3) K/mcL Eosinophils # (0.0-0.6) K/mcL Basophils # (0.0-0.2) K/mcL Sodium 137 (136-145) mEq/L Potassium 3.7 (3.5-5.1) mEq/L Chloride 105 (98-107) mEq/L Carbon Dioxide 24 (23-29) mEq/L BUN 7 (6-20) mg/dL Creatinine 0.62 (0.60-1.20) mg/dL Est GFR ( Amer) > 60 (> 60) Est GFR (Non-Af Amer) > 60 (> 60) BUN/Creatinine Ratio 11 (6-26) Glucose 97 (70-105) mg/dL Calculated Osmolality 282 (280-300) Calcium 9.4 (8.6-10.3) mg/dL Total Bilirubin 0.7 (0.3-1.0) mg/dL Direct Bilirubin 0.2 (0.0-0.2) mg/dL Indirect Bilirubin 0.5 (0.0-1.2) mg/dL AST 11 L (13-39) Units/L ALT 8 (7-52) Units/L Alkaline Phosphatase 92 (34-104) Units/L Serum Total Protein 7.0 (6.4-8.9) g/dL Albumin 4.2 (3.5-5.7) g/dL Globulin 2.8 (2.4-3.5) g/dL Albumin/Globulin Ratio 1.5 (1.1-2.2) Urine Color (Yellow) Urine Clarity (Clear) Urine pH (5.0-8.0) pH Units Ur Specific [place] (1.010-1.025) Urine Protein (Neg-Trace) mg/dL Urine Glucose (UA) (Normal) mg/dL Urine Ketones (Negative) mg/dL Urine Blood (Negative) Urine Nitrite (Negative) Urine Bilirubin (Negative) Urine Urobilinogen (Normal) mg/dL Ur Leukocyte Esterase (Negative) Urine Microscopic RBC (0-3) per hpf Urine Microscopic WBC (0-3) per hpf Ur Squamous Epith Cells (None-Few) per lpf Urine Bacteria (None-Few) per hpf Hyaline Casts (None-Few) per lpf Ur Culture Indicated? (NO) Urine Test (Negative) - Radiology Data Radiology results reviewed: Yes I reviewed the patient's radiology results. EXAMINATION: CT OF THE ABDOMEN AND PELVIS WITH CONTRAST 01/07/2019 1:26 am TECHNIQUE: CT of the abdomen and pelvis was performed with the administration of intravenous contrast. Multiplanar reformatted images are provided for review. Dose modulation, iterative reconstruction, and/or weight based adjustment of the mA/kV was utilized to reduce the radiation dose to as low as reasonably achievable. COMPARISON: 08/09/2012 HISTORY: ORDERING SYSTEM PROVIDED HISTORY: R sided abd pain, hematemesis 75 ml of isovue 370 FINDINGS: Lower Chest: There is minimal bibasilar atelectasis. Organs: Intrahepatic biliary ductal dilation is identified without focal liver lesion. Cholelithiasis is noted with pericholecystic fluid. The spleen, pancreas adrenal glands and kidneys are unremarkable. GI/Bowel: Small bowel caliber is normal. The appendix is normal. The colon is unremarkable. Pelvis: The bladder is grossly negative. The uterus is retroflexed. Peritoneum/Retroperitoneum: Trace free fluid in the pelvis is likely physiologic. There is no adenopathy or mesenteric stranding. Aortic caliber is normal. The left renal vein is circumaortic. Bones/Soft Tissues: Unremarkable. CT/CT abd pelvis w iv no oral IMPRESSION: Cholelithiasis with suspected acute cholecystitis. There is also intrahepatic biliary ductal dilation. D/ / Sunil Hernandez MD / Sunil Hernandez MD Interpreting Provider: Sunil Hernandez MD - EKG Data EKG attestation: Yes I reviewed and interpreted this EKG.
[2019-01-07] MEDS ORDERED: Ondansetron 4 MG/2 ML VIAL IVP PRN ×2 (04:28→22:28)
[2019-01-07] MEDS ORDERED: 0.9 % Sodium Chloride 1,000 ML IVC SCH ×2 (04:30→22:28)
[2019-01-07] MEDS: OXYCODONE Oral CONC 10 MG/0.5 ML ORAL.SYG SL PRN ×3 (04:47→22:58)
[2019-01-07] MEDS: Piperacillin/Tazobactam 3.375 GM in 0.9 % Sodium Chloride Mini Bag 100 ML IVPB SCH ×4 (04:57→23:27)
--- NOTE | 2019-01-07 08:34 | Acute Care Surgery H&P ---
<Lorin Landin P - Last Filed: 01/07/19 08:52> Date of Encounter: 01/07/19 Time of Encounter: 08:00 Assessment and Plan (1) Cholelithiasis and cholecystitis without obstruction Current Visit: Yes Status: Acute * The patient admitted for increased abdominal pain in right upper quadrant and epigastrium for last 2 days, the pain was a she with nausea vomiting. * CT abdomen and pelvis showed :Cholelithiasis with suspected acute cholecyst itis. There is also intrahepatic biliary ductal dilation. * White count shows elevated; 12.7 * The patient is having cholelithiasis, we are planning to do laparoscopic cholecystectomy today. * We have put her on IV antibiotic, explained about risk and benefit of surgery Plan : * Surgery today, nothing by mouth from midnight, consent obtained. * continue IV antibiotic Zosyn * Preanesthetic evaluation and preop labs * IV hydration * The assessment and plan as outlined above was discussed with the patient and/or family members who expressed understanding and agreement. All questions were answered. Qualifiers: Cholelithiasis location: gallbladder Cholecystitis acuity: acute Qualified Code(s): K80.00 - Calculus of gallbladder with acute cholecystitis without obstruction History of Present Illness Chief complaint: pain abdomen HPI: Ms. Duff is a 23 year old female presented to [facility] ED for severe acute right abdominal pain for last 2 days. The patient notes her pain 78/10, localized to right upper abdomen, associated with nausea and vomiting. The patient denies abdominal distention, fever, abdominal trauma, rash. The patient does not have any significant medical illness. Ct abdomen shows :Cholelithiasis with suspected acute cholecystitis. There is also intrahepatic biliary ductal dilation.We are planning to admit her and do laparoscopic cholecystectomy today. Past Med Surg Social Fam HX - Past Medical History Medical history: seizures, other Additional medical history: epilepsy, pseudoseizures, Psychiatric history: anxiety, depression, previous psychiatric hospitalization - Past Surgical History Surgical History: other Additional surgical history: EYE SURGERY. GAMMA KNIFE RADIATION- ruptured AVM. - Social History Smoking Status: Former smoker Smokeless Tobacco Status: No Alcohol use: none Drug use: none, other - Family History Mother Adopted: No Family Member Ethnicity: Non- Living Status: Still Living Hx Family Cardiac Disorders: No Hx Family Respiratory Disorders: No Hx Family Cancer: No Hx Family GI Disorders: No Hx Family Endocrine Disorder: Yes (kidney disease) Hx Family Neuromuscular Disorders: Yes (seizures) Hx Family Neurologic Disorders: Yes (shelby, schizo affective disorder) Hx Family HEENT Disorders: No Hx Family Autoimmune Disorders: No Medications and Allergies Sertraline [Zoloft] 25 mg PO DAILY #90 tablet 09/09/18 [Rx] Allergy/AdvReac Type Severity Reaction Status Date / Time Cephalosporins Allergy Anaphylaxis Verified 01/07/19 06:06 adhesive tape AdvReac Rash Verified 01/07/19 06:06 latex AdvReac Rash Verified 01/07/19 06:06 Review of Systems All systems PM: The remainder of the systems were reviewed and are negative - Constitutional anorexia, headache(s), malaise, no weakness, no weight gain, no weight loss - EENT Nose, mouth and throat: no hoarseness, no lip swelling, no sore throat - Cardiovascular lightheadedness, no chest pain, no dyspnea on exertion, no palpitations, no rapid heart rate - Respiratory no cough, no dyspnea, no wheezing - Gastrointestinal abdominal pain, bloating, heartburn, hematemesis, nausea, vomiting - Integumentary no alopecia, no erythema, no skin ulcer - Neurological no convulsions, no dizziness, no syncope - Psychiatric no anxiety, no confusion, no depression, no difficulty concentrating - Hematologic/Lymphatic no easy bleeding, no easy bruising - Allergic/Immunologic no tongue swelling, no wheezing General Surgery Exam Initial Vital Signs Temp Pulse Resp BP Pulse Ox 99.7 F H 60 16 142/100 99 01/06/19 23:25 01/06/19 23:25 01/06/19 23:25 01/06/19 23:25 01/06/19 23:25 - General physical appearance well developed, well nourished, no distress, moderate pain - Eyes PERRL, normal ocular movement - ENT normal mucosa, no congestion - Neck trachea midline, no lymphadectomy, no venous distension - Respiratory normal expansion, normal respiratory effort, clear to percussion - Cardiovascular Cardiovascular exam: Present: RRR, regular rhythm, no murmurs/rubs/gallops - Abdomen Abdomen general surgery: Present: bowel sounds present, soft, non tender. Absent: rebound, rigid Abdominal Tenderness: Present: epigastic, RUQ Hernia: Present: none - Integumentary Integumentary general surgery: Present: warm and dry - Neurologic Present: CN 2-12 grossly intact, normal coordination, normal sensation - Musculoskeletal Present: normal gait, normal posture - Psychiatric Psychiatric general surgery: Present: A&Ox3, appropriate, oriented to person, oriented to place, oriented to time Results - Labs 01/07/19 00:03 01/07/19 00:03 Abnormal lab results WBC 12.7 K/mcL (4.3-11.1) H 01/07/19 00:03 MCH 27.6 pg (28.0-33.3) L 01/07/19 00:03 AST 11 Units/L (13-39) L 01/07/19 00:03 Trace mg/dL (Negative) H 01/06/19 23:43 Ur Leukocyte Esterase Small (Negative) H 01/06/19 23:43 3-5 per hpf (0-3) H 01/06/19 23:43 5-15 per hpf (0-3) H 01/06/19 23:43 Ur Squamous Epith Cells Many per lpf (None-Few) H 01/06/19 23:43 Moderate per hpf (None-Few) H 01/06/19 23:43 Ur Culture Indicated? YES (NO) A 01/06/19 23:43 Diabetes panel 01/07/19 Range/Units 00:03 Sodium 137 (136-145) mEq/L Potassium 3.7 (3.5-5.1) mEq/L Chloride 105 (98-107) mEq/L Carbon Dioxide 24 (23-29) mEq/L BUN 7 (6-20) mg/dL Creatinine 0.62 (0.60-1.20) mg/dL Glucose 97 (70-105) mg/dL Calcium 9.4 (8.6-10.3) mg/dL AST 11 L (13-39) Units/L ALT 8 (7-52) Units/L Alkaline Phosphatase 92 (34-104) Units/L Albumin 4.2 (3.5-5.7) g/dL Calcium panel 01/07/19 Range/Units 00:03 Calcium 9.4 (8.6-10.3) mg/dL Albumin 4.2 (3.5-5.7) g/dL Pituitary panel 01/07/19 Range/Units 00:03 Sodium 137 (136-145) mEq/L Potassium 3.7 (3.5-5.1) mEq/L Chloride 105 (98-107) mEq/L Carbon Dioxide 24 (23-29) mEq/L BUN 7 (6-20) mg/dL Creatinine 0.62 (0.60-1.20) mg/dL Glucose 97 (70-105) mg/dL Calcium 9.4 (8.6-10.3) mg/dL Adrenal panel 01/07/19 Range/Units 00:03 Sodium 137 (136-145) mEq/L Potassium 3.7 (3.5-5.1) mEq/L Chloride 105 (98-107) mEq/L Carbon Dioxide 24 (23-29) mEq/L BUN 7 (6-20) mg/dL Creatinine 0.62 (0.60-1.20) mg/dL Glucose 97 (70-105) mg/dL Calcium 9.4 (8.6-10.3) mg/dL Total Bilirubin 0.7 (0.3-1.0) mg/dL AST 11 L (13-39) Units/L ALT 8 (7-52) Units/L Alkaline Phosphatase 92 (34-104) Units/L Albumin 4.2 (3.5-5.7) g/dL All other labs normal. <Teo Vann - Last Filed: 01/07/19 10:59> Date of Encounter: 01/07/19 History of Present Illness HPI: Ms. Duff is a 23 year old female Review of Systems All systems PM: The remainder of the systems were reviewed and are negative General Surgery Exam Initial Vital Signs Temp Pulse Resp BP Pulse Ox 99.7 F H 60 16 142/100 99 01/06/19 23:25 01/06/19 23:25 01/06/19 23:25 01/06/19 23:25 01/06/19 23:25 Results - Labs 01/07/19 00:03 01/07/19 00:03 Abnormal lab results WBC 12.7 K/mcL (4.3-11.1) H 01/07/19 00:03 MCH 27.6 pg (28.0-33.3) L 01/07/19 00:03 AST 11 Units/L (13-39) L 01/07/19 00:03 Trace mg/dL (Negative) H 01/06/19 23:43 Ur Leukocyte Esterase Small (Negative) H 01/06/19 23:43 3-5 per hpf (0-3) H 01/06/19 23:43 5-15 per hpf (0-3) H 01/06/19 23:43 Ur Squamous Epith Cells Many per lpf (None-Few) H 01/06/19 23:43 Moderate per hpf (None-Few) H 01/06/19 23:43 Ur Culture Indicated? YES (NO) A 01/06/19 23:43 Diabetes panel 01/07/19 Range/Units 00:03 Sodium 137 (136-145) mEq/L Potassium 3.7 (3.5-5.1) mEq/L Chloride 105 (98-107) mEq/L Carbon Dioxide 24 (23-29) mEq/L BUN 7 (6-20) mg/dL Creatinine 0.62 (0.60-1.20) mg/dL Glucose 97 (70-105) mg/dL Calcium 9.4 (8.6-10.3) mg/dL AST 11 L (13-39) Units/L ALT 8 (7-52) Units/L Alkaline Phosphatase 92 (34-104) Units/L Albumin 4.2 (3.5-5.7) g/dL Calcium panel 01/07/19 Range/Units 00:03 Calcium 9.4 (8.6-10.3) mg/dL Albumin 4.2 (3.5-5.7) g/dL Pituitary panel 01/07/19 Range/Units 00:03 Sodium 137 (136-145) mEq/L Potassium 3.7 (3.5-5.1) mEq/L Chloride 105 (98-107) mEq/L Carbon Dioxide 24 (23-29) mEq/L BUN 7 (6-20) mg/dL Creatinine 0.62 (0.60-1.20) mg/dL Glucose 97 (70-105) mg/dL Calcium 9.4 (8.6-10.3) mg/dL Adrenal panel 01/07/19 Range/Units 00:03 Sodium 137 (136-145) mEq/L Potassium 3.7 (3.5-5.1) mEq/L Chloride 105 (98-107) mEq/L Carbon Dioxide 24 (23-29) mEq/L BUN 7 (6-20) mg/dL Creatinine 0.62 (0.60-1.20) mg/dL Glucose 97 (70-105) mg/dL Calcium 9.4 (8.6-10.3) mg/dL Total Bilirubin 0.7 (0.3-1.0) mg/dL AST 11 L (13-39) Units/L ALT 8 (7-52) Units/L Alkaline Phosphatase 92 (34-104) Units/L Albumin 4.2 (3.5-5.7) g/dL All other labs normal. - Attending Attestation I examined this patient and my medical decision-making was reviewed with the Resident Physician. I agree with the documented findings, disposition and treatment plan as described except to the extent set forth below. The patient is seen and evaluated with the acute care surgery team and the resident. I personally reviewed the CAT scan of the abdomen. Her clinical course, physical examination, and radiologic studies are consistent with acute cholecystitis. We will plan laparoscopic cholecystectomy later today. I discussed the risks and benefits with the patient including bleeding, infection, and postoperative bile leak. She understands and wishes to proceed. Teo Vann MD FACS
[2019-01-07] MEDS ORDERED: Pantoprazole 40 MG VIAL IVP SCH (09:00)
[2019-01-07] MEDS ORDERED: CefOXitin 1,000 MG VIAL ONE (20:39)
--- NOTE | 2019-01-07 20:39 | Anesthesia Evaluation PreOp ---
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) Other Medical History: Other (Anxiety Depression) Anesthesia History: No Prior Anesthetic Complications : No Test: Negative Alcohol Use: none Drug use: none, other Medications and Allergies Sertraline [Zoloft] 25 mg PO DAILY #90 tablet 09/09/18 [Rx] 3 Allergy/AdvReac Type Severity Reaction Status Date / Time Cephalosporins Allergy Anaphylaxis Verified 01/07/19 06:06 adhesive tape AdvReac Rash Verified 01/07/19 06:06 latex AdvReac Rash Verified 01/07/19 06:06 - Meds/Allergy Pre-op Review Medications Reviewed: Yes Allergies Reviewed: Yes Beta Blockers on Current Med List: No Anesthesia Results - Labs 01/07/19 00:03 01/07/19 00:03 Laboratory Tests 01/06/19 01/07/19 01/07/19 23:43 00:03 00:03 Hgb 13.7 Hct 42.2 Plt Count 313 Sodium 137 Potassium 3.7 BUN 7 Creatinine 0.62 Urine Test Negative Anesthesia Exam O2 Sat Height 1.52 m Weight 66.423 kg Weight 68.039 kg O2 Sat by Pulse Oximetry 95 O2 Sat by Pulse Oximetry 96 O2 Sat by Pulse Oximetry 97 O2 Sat by Pulse Oximetry 96 O2 Sat by Pulse Oximetry 97 O2 Sat by Pulse Oximetry 98 O2 Sat by Pulse Oximetry 98 O2 Sat by Pulse Oximetry 100 O2 Sat by Pulse Oximetry 99 Vital Signs Temp Pulse Resp BP Pulse Ox 99.7 F H 60 16 142/100 99 01/06/19 23:25 01/06/19 23:25 01/06/19 23:25 01/06/19 23:25 01/06/19 23:25 Height: 5'0 Weight: 146 lbs NPO (# of Hours): MN - HEENT Pupil (Motor): Pupils equal, EOMI Mallampati: II Teeth: Normal Oral Opening: Greater than 3 - ORAL PATHOLOGIST LOC: Oriented ORAL PATHOLOGIST Motor: Normal RUE, Normal LUE, Normal RLE, Normal LLE, Normal Face ORAL PATHOLOGIST Sensory: Normal: RUE, LUE, RLE, LLE, Face - Cardiac Rhythm: Regular Murmur: None JVD: No Carotid Bruit: No - Pulmonary Breath Sounds: bilateral Clear Respiratory Effort: Symmetrical Anesthesia Assess/Plan ASA Score: 3 (Seizures CVA from AVM) Level of consciousness: Cooperative, Oriented Anesthetic Plan: General Autologous Blood: No Monitoring Plan: Standard Monitors Recovery Plan: PACU (Discussed GA, agrees to proceed)
[2019-01-07] MEDS ORDERED: *HR* HYDROmorphone (PF) 1 MG/ML SYRINGE IVP PRN (20:41)
[2019-01-07] MEDS ORDERED: Acetaminophen IV 1,000 MG/100 ML INFUS..BTL IVPB ONE (20:42)
[2019-01-07] MEDS ORDERED: *HR* Propofol 200 MG/20 ML VIAL IVP ONE (20:46)
[2019-01-07] MEDS ORDERED: *HR* FentaNYL (PF) 100 MCG/2 ML VIAL ONE (20:46)
[2019-01-07] MEDS ORDERED: Ondansetron 4 MG/2 ML VIAL ONE (20:47)
[2019-01-07] MEDS ORDERED: Dexamethasone 4 MG/ML VIAL ONE ×3 (20:47→21:14)
[2019-01-07] MEDS ORDERED: Lidocaine -MPF 2% 2 ML VIAL ONE (20:47)
[2019-01-07] MEDS ORDERED: *HR* Rocuronium Bromide 50 MG/5 ML VIAL ONE (20:47)
[2019-01-07] MEDS ORDERED: Isovue-300 50 ML VIAL ONE (20:56)
[2019-01-07] MEDS ORDERED: Ketorolac 30 MG/ML VIAL ONE (21:21)
[2019-01-07] MEDS ORDERED: Neostigmine Methylsulfate 3 MG/3 ML SYRINGE ONE (21:32)
--- NOTE | 2019-01-07 21:43 | Operative Note ---
Date of procedure: 01/07/19 Pre-op diagnosis: Acute cholecystitis Post-op diagnosis: same Procedure: Laparoscopic cholecystectomy, cholangiogram Anesthesia: JL Surgeon: Teo Vann Was there an infertility medical assistant present: Yes Furnace Repairer: Seema Bingham Estimated blood loss (cc): 10 Specimen: Gallbladder and contents Condition: stable Disposition: PACU Procedure in Detail: Laparoscopic cholecystectomy and intraoperative cholangiogram Operative procedure: after informed consent and appropriate patient identification, the patient was taken to the major operating suite and placed supine position and given adequate general endotracheal anesthesia. The abdomen was prepped and draped in sterile fashion utilizing ChloraPrep standard draping techniques. Timeout was taken and the patient was identified. I made a vertical midline incision below the umbilicus and dissected down to level of fascia. I placed 2 traction stitches of 0 vicryl in the midline fascia and the abdominal cavity was entered visually. A Robertson trocar was placed in the abdomen and the abdomen was insufflated to 15 mmHg pressure CO2. The gallbladder was visualized. I placemed an 11 port in the subxiphoid area and two 5 mm ports in the subcostal area. The gallbladder was acutely obstructed and I was unable to place clamps. The gallbladder was decompressed with a decompression needle. Clear green bile was suctioned from the obstructed gallbladder. The gallbladder was grasped and elevated. A variety of blunt and sharp dissection techniques were used to isolate the cystic duct and cystic artery. The cystic artery was controlled with 2 surgical clips proximally and one distally and it was divided. I placed a surgical clip on the neck the gallbladder and obtained an intraoperative cholangiogram using 10 mL of Isovue. Intraoperative cholangiogram was normal. The cholangiocatheter was removed and the cystic duct was controlled with 2 surgical clips proximally and was divided. The gallbladder was removed from the gallbladder fossae using electrocautery. The gallbladder was removed from the abdomen through the #11 port site. I replaced the #11 port and irrigated with copious amounts of antibiotic containing solution. There was no evidence of bleeding or bile leak. All trochars were removed. Fascia was closed with 0 Vicryl and the skin with 2-0 and 4-0 Vicry. She tolerated the procedure well and was transferred to recovery in stable condition
[2019-01-08 05:59] LABS: Basophils % 0.5 %; Eosinophils # 0.1 K/mcL (0.0-0.6); Eosinophils % 0.7 %; Immature Granulocytes % 0.2 % (0-4); Lymphocytes # 2.9 K/mcL (0.6-4.6); Mean Corpuscular HGB Conc 32.5 g/dL (31.6-35.5); Mean Corpuscular Hemoglobin 27.7 pg (28.0-33.3); Mean Corpuscular Volume 85.3 fL (83.0-100.0); Mean Platelet Volume 10.3 fL (9.4-12.4); Monocytes # 0.8 K/mcL (0.0-1.3); Monocytes % 9.3 %; Neutrophils # 4.5 K/mcL (1.6-8.9); Platelet Count 211 K/mcL (140-400); Red Blood Count 4.22 M/mcL (3.82-4.97); Red Cell Distribution Width 13.2 % (11.5-14.5); Segmented Neutrophils % 54.3 %; White Blood Count 8.2 K/mcL (4.3-11.1)
[2019-01-08 06:03] LABS: Hemoglobin 11.7 g/dL (11.5-15.4)
[2019-01-08 06:06] LABS: INR 1.2; Prothrombin Time 13.3 Seconds (9.4-12.1)
[2019-01-08 06:09] LABS: Activated Partial Thrombo Time 30.1 Seconds (26.0-36.0)
[2019-01-08] MEDS: Piperacillin/Tazobactam 3.375 GM in 0.9 % Sodium Chloride Mini Bag 100 ML IVPB SCH ×2 (06:09→16:18)
[2019-01-08 06:18] LABS: eGFR For African Americans > 60 (> 60); eGFR For Non-African Americans > 60 (> 60)
[2019-01-08] MEDS ORDERED: Pantoprazole 40 MG VIAL IVP SCH (09:00)
--- NOTE | 2019-01-08 09:11 | Discharge Summary ---
<Lorin Landin P - Last Filed: 01/08/19 11:54> - NOTES TO OUTPATIENT PROVIDER Notes to Outpatient Provider: He will follow-up in [place] [facility] outpatient clinic within 2 weeks. Please read and follow given surgical instructions. Orders not resulted at time of discharge: Pending orders 01/06/19 23:43 Culture,Urine [RM] Stat 01/07/19 21:29 Surgical Pathology [PTH] Routine Date of Encounter: 01/08/19 Time of Encounter: 09:00 - Discharge Diagnosis (1) Cholelithiasis and cholecystitis without obstruction Priority: Primary Status: Acute Comments: on 01/07/2019 :Laparoscopic cholecystectomy, cholangiogram Qualifiers: Cholelithiasis location: gallbladder Cholecystitis acuity: acute Qualified Code(s): K80.00 - Calculus of gallbladder with acute cholecystitis without obstruction General Surgery Exam Initial Vital Signs Temp Pulse Resp BP Pulse Ox 99.7 F H 60 16 142/100 99 01/06/19 23:25 01/06/19 23:25 01/06/19 23:25 01/06/19 23:25 01/06/19 23:25 - General physical appearance well developed, well nourished, no distress, moderate pain - Eyes PERRL, normal ocular movement - ENT normal nares, normal mucosa - Neck no bruits, trachea midline, no lymphadectomy, no venous distension - Respiratory normal expansion, normal respiratory effort, clear to percussion, clear to auscultation - Cardiovascular Cardiovascular exam: Present: RRR, regular rhythm, no murmurs/rubs/gallops - Abdomen Abdomen general surgery: Present: bowel sounds present, soft, tender. Absent: distended, guarding, rebound, rigid Hernia: Present: none - Incision Incision: Present: clean and dry, intact - Integumentary Integumentary general surgery: Present: warm and dry - Neurologic Present: CN 2-12 grossly intact, normal coordination, normal sensation - Musculoskeletal Present: normal gait - Psychiatric Psychiatric general surgery: Present: A&Ox3, oriented to person, oriented to place, oriented to time, speech is normal - Hospital Course Hospital course: Ms. Duff is a 23 year old female presented to [facility] emergency for severe acute abdominal pain for last [address] abdomen and pelvis done in ED showed cholelithiasis with suspected acute cholecystitis and intrahepatic biliary ductal dilation. On 01/07/2019 Laparoscopic cholecystectomy,intraoperative cholangiogram was performed . Specimen has been sent to histopathologic evaluation and waiting for the report. She does not have any intra-operative and postoperative complication and gradually recovering from surgery. Patient is doing better after surgery, she has minimal pain, slightly nauseated but no vomiting. Her vital signs stable. She is gradually tolerating full liquid to soft diet. We are planning to send her home later today and she will follow-up in outpatient clinic within 2 weeks. - Time Spent with Patient Total time spent providing and/or coordinating discharge services: - Discharge Medications Prescriptions: New Oxycodone HCl/Acetaminophen [Percocet 5-325 mg Tablet] 1 each PO Q8HR 5 Days #15 tablet Ondansetron HCl [Zofran] 4 mg PO Q8HR PRN 3 Days #12 tab PRN Reason: Nausea Continued Sertraline [Zoloft] 25 mg PO DAILY #90 tablet Home Medications: Sertraline [Zoloft] 25 mg PO DAILY #90 tablet 09/09/18 [Rx] Ondansetron HCl [Zofran] 4 mg PO Q8HR PRN 3 Days #12 tab 01/08/19 [Rx] Oxycodone HCl/Acetaminophen [Percocet 5-325 mg Tablet] 1 each PO Q8HR 5 Days #15 tablet 01/08/19 [Rx] Allergies/Adverse Reactions: Allergy/AdvReac Type Severity Reaction Status Date / Time Cephalosporins Allergy Anaphylaxis Verified 01/08/19 09:08 adhesive tape AdvReac Rash Verified 01/08/19 09:08 latex AdvReac Rash Verified 01/08/19 09:08 Date of admission: 01/07/19 09:14 Primary care physician: Regi Will MD Discharging clinician: Uri Garrido Anticipated date of discharge: 01/08/19 Labs on day of discharge: Labs from last 24 hours 01/08/19 01/08/19 01/08/19 05:43 05:43 05:43 WBC 8.2 RBC 4.22 Hgb 11.7 D Hct 36.0 MCV 85.3 MCH 27.7 L MCHC 32.5 RDW 13.2 Plt Count 211 MPV 10.3 Immature Gran % 0.2 Seg Neutrophils % 54.3 Lymphocytes % 35.0 Monocytes % 9.3 Eosinophils % 0.7 Basophils % 0.5 Neutrophils # 4.5 Lymphocytes # 2.9 Monocytes # 0.8 Eosinophils # 0.1 Basophils # 0.0 PT 13.3 H INR 1.2 APTT 30.1 Creatinine 0.75 Est GFR ( Amer) > 60 Est GFR (Non-Af Amer) > 60 POC Glucose 01/07/19 12:28 WBC RBC Hgb Hct MCV MCH MCHC RDW Plt Count MPV Immature Gran % Seg Neutrophils % Lymphocytes % Monocytes % Eosinophils % Basophils % Neutrophils # Lymphocytes # Monocytes # Eosinophils # Basophils # PT INR APTT Creatinine Est GFR ( Amer) Est GFR (Non-Af Amer) POC Glucose 79 Preliminary micro results at discharge 01/06/19 23:43 Urine Culture - Preliminary Urine,Clean Catch Culture is incubating. - Impressions ITS Impressions Cholangiogram,Operative 01/07/19 00:00 IMPRESSION: Spot fluoroscopic images were obtained for surgical control. D/ / 01/07/2019 21:39:52 Osito Cronin MD / bcarter Interpreting Provider: Osito Cronin MD Abdomen/Pelvis CT 01/07/19 00:45 IMPRESSION: Cholelithiasis with suspected acute cholecystitis. There is also intrahepatic biliary ductal dilation. D/ / Sunil Hernandez MD / Sunil Hernandez MD Interpreting Provider: Sunil Hernandez MD - Patient Status Disposition: Home, Self-Care Condition: Good Functional capacity at discharge: independent ambulation Overall status at discharge: patient is progressing back to baseline - Discharge Instructions Instructions: Laparoscopic Cholecystectomy (DC) Follow Up With: Lexie Watts CNP [Advanced Practice Nurse] - 01/24/19 9:30 am Additional Instructions: General Surgical Discharge Instructions 1. No pushing, pulling, or lifting greater than 15 lbs for 2-4 weeks (depending upon procedure). 2. You may shower beginning today, but no tub baths, soaking, or swimming for 2 weeks. 3. You may resume driving when you are off narcotics and are safe to react in a car. 4. Take ibuprofen every 8 hours for discomfort. If this does not relieve discomfort, you may take the as needed Percocet. Take narcotics as directed. Do not take more narcotics then directed and do not share your narcotics with any other person. Do not drink alcohol while on narcotics. 5. Take stool softeners (Colace) or a water based laxative (Miralax) while taking narcotics. You may hold for loose stools. 6. Report any fevers greater than 100.5F, increase abdominal discomfort, drainage that looks like pus, increased redness or pain at the surgical site, or any vomiting. 7. Report any pain in the calves, shortness of breath, or rapid heartbeat. 8. Follow-up in the office as directed. 9. If you were prescribed antibiotics, do not stop them without talking to your provider. - Diet and Activity Activity: resume usual activities as tolerated Diet: advance to your usual diet <Uri Garrido - Last Filed: 01/08/19 15:37> Orders not resulted at time of discharge: Pending orders 01/07/19 21:29 Surgical Pathology [PTH] Routine Date of Encounter: 01/08/19 General Surgery Exam Initial Vital Signs Temp Pulse Resp BP Pulse Ox 99.7 F H 60 16 142/100 99 01/06/19 23:25 01/06/19 23:25 01/06/19 23:25 01/06/19 23:25 01/06/19 23:25 - Hospital Course Hospital course: Ms. Duff is a 23 year old female - Time Spent with Patient Total time spent providing and/or coordinating discharge services: Date of admission: 01/07/19 09:14 Primary care physician: Regi Will MD Labs on day of discharge: Labs from last 24 hours 01/08/19 01/08/19 01/08/19 05:43 05:43 05:43 WBC 8.2 RBC 4.22 Hgb 11.7 D Hct 36.0 MCV 85.3 MCH 27.7 L MCHC 32.5 RDW 13.2 Plt Count 211 MPV 10.3 Immature Gran % 0.2 Seg Neutrophils % 54.3 Lymphocytes % 35.0 Monocytes % 9.3 Eosinophils % 0.7 Basophils % 0.5 Neutrophils # 4.5 Lymphocytes # 2.9 Monocytes # 0.8 Eosinophils # 0.1 Basophils # 0.0 PT 13.3 H INR 1.2 APTT 30.1 Creatinine 0.75 Est GFR ( Amer) > 60 Est GFR (Non-Af Amer) > 60 POC Glucose 01/07/19 12:28 WBC RBC Hgb Hct MCV MCH MCHC RDW Plt Count MPV Immature Gran % Seg Neutrophils % Lymphocytes % Monocytes % Eosinophils % Basophils % Neutrophils # Lymphocytes # Monocytes # Eosinophils # Basophils # PT INR APTT Creatinine Est GFR ( Amer) Est GFR (Non-Af Amer) POC Glucose 79 - Impressions ITS Impressions Cholangiogram,Operative 01/07/19 00:00 IMPRESSION: Spot fluoroscopic images were obtained for surgical control. D/ / 01/07/2019 21:39:52 Osito Cronin MD / sandip Interpreting Provider: Osito Cronin MD Abdomen/Pelvis CT 01/07/19 00:45 IMPRESSION: Cholelithiasis with suspected acute cholecystitis. There is also intrahepatic biliary ductal dilation. D/ / Sunil Hernandez MD / Sunil Hernandez MD Interpreting Provider: Sunil Hernandez MD - Attending Attestation patient seen and examined. i have reviewed all labs imaging, and notes. i have discussed the case in detail with the resident. I agree with the above assessment and plan.
[2019-01-08] MEDS: OXYCODONE Oral CONC 10 MG/0.5 ML ORAL.SYG SL PRN (10:40)
[2019-01-08 16:14] VITALS: BP 104/65
== END 2019-01-08 18:57 | disposition home or self-care (01) | DRG 263 ==
LOC: CDU 23:22 → EMEROOARM 23:22 → CDU 01-07 03:51 → 3ANU 01-07 18:15
PROVIDERS: ADMIT Surgery; ATTEND Surgery

== ENCOUNTER 2020-12-05 09:32 | Inpatient (IN) ==
[2020-12-05 09:04] LABS: Bacteria,Urine Few per hpf (None-Few); Bilirubin,Urine Negative (Negative); Blood,Urine Moderate (Negative); Clarity,Urine Turbid (Clear); Color,Urine Light-Orange (Yellow); Glucose,Urine (UA) Normal (Normal); Ketones,Urine Negative (Negative); Leukocyte Esterase,Urine Moderate (Negative); Mucus,Urine Few per lpf (None-Few); Nitrite,Urine Negative (Negative); PH,Urine 6.5 pH Units (5.0-8.0); Protein,Urine Trace mg/dL (Neg-Trace); RBC,Urine TNTC per hpf (0-3); Squamous Epithelial Cell,Urine Few per hpf (None-Few); Urobilinogen,Urine Normal (Normal); WBC,Urine 50-100 per hpf (0-3)
[~2020-12-05 09:32] MED LIST: Azithromycin 500 MG in 0.9 % Sodium Chloride 250 ML IVPB ONE; Famotidine 20 MG/2 ML VIAL IVP PRN; Lidocaine 1% 20 ML MDV ID PRN; Metoclopramide 10 MG/2 ML VIAL IVP PRN; Naloxone 0.4 MG/ML INJ IVP PRN; Ondansetron 4 MG/2 ML VIAL IVP PRN
[2020-12-05] MEDS ORDERED: Ringers Solution, Lactated 1,000 ML ONE (09:37)
[2020-12-05] MEDS ORDERED: Ringers Solution, Lactated 1,000 ML IVC SCH (09:45)
[2020-12-05] MEDS: *HR* Nalbuphine 10 MG/ML AMPUL IV PRN ×2 (09:51→11:49)
[2020-12-05 10:12] LABS: Basophils % 0.2 %; Eosinophils # 0.1 K/mcL (0.0-0.6); Eosinophils % 0.9 %; Hematocrit 37.1 % (35.3-44.9); Hemoglobin 12.8 g/dL (11.5-15.4); Immature Granulocytes % 0.5 % (0-4); Lymphocytes # 1.7 K/mcL (0.6-4.6); Lymphocytes % 10.5 %; Mean Corpuscular HGB Conc 34.5 g/dL (31.6-35.5); Mean Corpuscular Hemoglobin 30.3 pg (28.0-33.3); Mean Corpuscular Volume 87.7 fL (83.0-100.0); Monocytes # 1.7 K/mcL (0.0-1.3); Monocytes % 10.7 %; Neutrophils # 12.5 K/mcL (1.6-8.9); Platelet Count 206 K/mcL (140-400); Red Blood Count 4.23 M/mcL (3.82-4.97); Segmented Neutrophils % 77.2 %; White Blood Count 16.2 K/mcL (4.3-11.1)
[2020-12-05 11:25] LABS: Amphetamine Screen,Urine Negative ng/mL (Cutoff=1000); Barbiturate Screen,Urine Negative ng/mL (Cutoff=200); Benzodiazepines Screen,Urine Negative ng/mL (Cutoff=200); Cannabinoid Screen,Urine Negative ng/mL (Cutoff = 50); Cocaine Screen,Urine Negative ng/mL (Cutoff= 300); Opiate Screen,Urine Negative ng/mL (Cutoff=300); Phencyclidine Screen,Urine Negative ng/mL (Cutoff=25)
[2020-12-05] MEDS ORDERED: Ketorolac 30 MG/ML VIAL IVP PRN (12:20)
[2020-12-05] MEDS ORDERED: Oxytocin 20 units/ LR 1000 mL 20 UNIT/1,000 ML BAG IVC ONE (12:20)
[2020-12-05] MEDS ORDERED: Diphenoxylate/Atropine 1 TAB TABLET PO ONE (12:56)
[2020-12-05] MEDS ORDERED: Measles/Mumps/Rubella Vacc 0.5 ML VIAL SQ PRN (13:28)
[2020-12-05] MEDS ORDERED: Benzocaine/Menthol 56 GM AEROSOL SPRAY TP PRN (13:28)
[2020-12-05] MEDS ORDERED: Oxytocin 20 units/ LR 1000 mL 20 UNIT/1,000 ML BAG IVC SCH (13:30)
[2020-12-05] MEDS ORDERED: NON-FORMULARY MEDICATION 1 EACH EACH (Prenatal Tablet 1 TAB) PO SCH (13:45)
[2020-12-05] MEDS ORDERED: Ibuprofen 600 MG TABLET PO SCH (15:30)
[2020-12-05] MEDS ORDERED: miSOPROStoL 100 MCG TABLET RC ONE (17:34)
[2020-12-05] MEDS ORDERED: Acetaminophen 325 MG TABLET PO SCH (18:00)
[2020-12-05 19:57] LABS: Chlamydia Trachomatis DNA Ur NOT DETECTED (Not Detect)
[2020-12-06] MEDS ORDERED: Prenatal Vit/FA 1 EACH TABLET PO SCH (09:00)
== END 2020-12-05 17:35 | disposition home or self-care (01) | DRG 560 ==
LOC: 1NENULAB
PROVIDERS: ADMIT Obstetrics & Gynecology; ATTEND Obstetrics & Gynecology